=== PATIENT | male | born 1935 | race Caucasian/White ===

== ENCOUNTER 2016-11-23 17:07 | Emergency (ER) | payer OTHER ==
[~2016-11-23] VITALS: Ht 162.6 cm; Wt 120.2 kg
[~2016-11-23 17:07] MED LIST: ASPI81CH59 PO; ATO40T PO; BUPR100T71 PO; FLUT100M7 IN; FUR40T PO; LOS50T PO; POTA10TA75 PO; SERT-135 PO
[2016-11-23 18:50] LABS: Albumin 3.2 g/dL (3.4-5.0); Anion Gap 12 (5-15); Aspartate Aminotransferase 9 U/L (15-37); BUN/Creatinine Ratio 9.5; Blood Urea Nitrogen 16 mg/dL (7-18); Calcium 8.1 mg/dL (8.5-10.1); Carbon Dioxide 25 mmol/L (21-32); Chloride 108 mmol/L (98-107); GFR African American 51 mL/min; GFR Non-African American 42 mL/min; Glucose 110 mg/dL (74-106); Potassium 3.5 mmol/L (3.5-5.1); Sodium 145 mmol/L (136-145)
[2016-11-23 18:55] LABS: Alkaline Phosphatase 104 U/L (45-117); Bilirubin, Total 0.7 mg/dL (0.2-1.0); Total Protein 6.8 g/dL (6.4-8.2)
[2016-11-23 19:05] LABS: Basophils # (auto) 0 uL; Basophils % (auto) 0.3 % (0.0-2.0); CONDITION Y; Eosinophils # (auto) 0.3 uL; Eosinophils % (auto) 3.1 % (0.0-7.0); Hematocrit 39.8 % (41.0-53.0); Hemoglobin 13.2 g/dL (13.5-17.5); Lymphocytes # (auto) 2.9 uL; Lymphocytes % (auto) 28.5 % (10.0-50.0); Mean Corpuscular Hemoglobin 30.6 pg (28.0-32.0); Mean Corpuscular Hgb Conc. 33.3 g/dL (32.0-36.0); Mean Platelet Volume 10.8 fL (7.4-10.4); Monocytes # (auto) 0.9 uL; Monocytes % (auto) 9.4 % (0.0-12.0); Neutrophils # (auto) 5.9 uL; Neutrophils % (auto) 58.7 % (37.0-80.0); Platelet Count (auto) 217 10^3/uL (140-450); Red Cell Distribution Width 15.3 % (11.6-16.0); White Blood Cell 10.1 10^3/uL (4.4-10.8)
[2016-11-23 20:27] LABS: INR 1.12 (0.9-1.15); Partial Thromboplastin Time 25.5 sec (22.64-33.71); Prothrombin Time 12.2 sec (9.37-12.3)
[2016-11-23 20:59] LABS: Urine Bilirubin Negative (Negative); Urine Blood Negative /uL (Negative); Urine Color Yellow (Yellow); Urine Glucose Normal (Normal); Urine Ketone Negative (Negative); Urine Mucus FEW (None Seen); Urine Nitrite Negative (Negative); Urine RBC <1 /hpf (0 - 3); Urine Urobilinogen Normal (Negative); Urine pH 5.5 (5.0-8.0)
[2016-11-23] MEDS ORDERED: FUROSEMIDE 20 MG/2 ML VIAL IV ONE (22:15)
[2016-11-23] MEDS ORDERED: cefTRIAXone 1GM/50ML D5W 50 ML IV ONE (22:15)
[2016-11-23] MEDS ORDERED: IPRATROPIUM BROM 0.5 MG/2.5ML INH SOL NEB ONE (22:45)
[2016-11-23] MEDS ORDERED: ALBUTEROL SULF 2.5 MG/0.5ML(0.5%) NEB SOLN NEB ONE (22:45)
[2016-11-23 23:17] LABS: B-Type Natriuretic Peptide 860.93 pg/mL (0-100)
[2016-11-23 23:24] LABS: Temperature: 23.3 C (20.0-25.0)
[2016-11-24 05:30] VITALS: BP 150/94
== END 2016-11-24 05:54 | disposition home or self-care (01) ==
LOC: ER 17:07 → EDBD 17:07 → ER 11-24 05:54
DX: I11.0 Hypertensive heart disease with heart failure (principal); I50.9 Heart failure, unspecified; L03.116 Cellulitis of left lower limb; L03.115 Cellulitis of right lower limb; R60.9 Edema, unspecified; J44.9 Chronic obstructive pulmonary disease, unspecified; E78.5 Hyperlipidemia, unspecified; M19.90 Unspecified osteoarthritis, unspecified site; Z79.82 Long term (current) use of aspirin; Z79.899 Other long term (current) drug therapy
CPT/HCPCS: 36415; 51702; 71020; 80053; 81001; 83880; 84484; 85025; 85379; 85610; 85730; 93005; 93970; 94640; 96365; 96375; 99285; J0696; J1940

== ENCOUNTER 2019-08-27 08:14 | Inpatient (IN) | payer OTHER, SELFPAY ==
[~2019-08-27] VITALS: Ht 162.6 cm; Wt 113.9 kg
[~2019-08-27 08:14] MED LIST changes: -SERT-135 PO; +SERT100T PO
[2019-08-27] MEDS ORDERED: AZITHROMYCIN 500MG/ 250ML 250 ML IV ONE (08:45)
[2019-08-27] MEDS ORDERED: ASPirin 81 mg TAB PO ONE (08:45)
[2019-08-27] MEDS ORDERED: cefTRIAXone 1GM/50ML D5W 50 ML IV ONE (08:45)
[2019-08-27 09:35] LABS: Basophils # (auto) 0.1 10 ^3/uL (0-0.2); Basophils % (auto) 0.8 % (0.0-2.0); Eosinophils # (auto) 0.2 10 ^3/uL (0-0.8); Hematocrit 46.2 % (41.0-53.0); Lymphocytes # (auto) 2.2 10 ^3/uL (0.4-5.4); Lymphocytes % (auto) 18.3 % (10.0-50.0); Mean Corpuscular Hemoglobin 31.9 pg (28.0-32.0); Mean Corpuscular Hgb Conc. 32.5 g/dL (32.0-36.0); Mean Corpuscular Volume 98.3 fL (80.0-100.0); Monocytes # (auto) 0.9 10 ^3/uL (0-1.3); Monocytes % (auto) 7.6 % (0.0-12.0); Neutrophils # (auto) 8.4 10 ^3/uL (1.6-8.6); Neutrophils % (auto) 71.3 % (37.0-80.0); Platelet Count (auto) 206 10^3/uL (140-450); Red Cell Distribution Width 13.9 % (11.8-14.3); White Blood Cell 11.8 10^3/uL (4.4-10.8)
[2019-08-27 09:52] LABS: Albumin 3.7 g/dL (3.4-5.0); Anion Gap 10 (5-15); Blood Urea Nitrogen 32 mg/dL (7-18); Calcium 8.9 mg/dL (8.5-10.1); Carbon Dioxide 21 mmol/L (21-32); Chloride 106 mmol/L (98-107); Glucose 120 mg/dL (74-106); Potassium 4.7 mmol/L (3.5-5.1); Sodium 137 mmol/L (136-145)
[2019-08-27 09:56] LABS: Alanine Aminotransferase 22 U/L (16-61); Alkaline Phosphatase 89 U/L (45-117); Aspartate Aminotransferase 29 U/L (15-37); BUN/Creatinine Ratio 16.7; Bilirubin, Total 0.8 mg/dL (0.2-1.0); GFR African American 43 mL/min; GFR Non-African American 36 mL/min; Lactate Dehydrogenase 363 U/L (87-241); Total Protein 7.7 g/dL (6.4-8.2)
[2019-08-27 10:14] LABS: INR 1.51 (0.9-1.15); Partial Thromboplastin Time 32.1 sec (23.64-32.05)
[2019-08-27] MEDS ORDERED: MORPHINE SULF INJ 2 MG/ML SYRINGE 1ML IV PRN (11:30)
[2019-08-27] MEDS ORDERED: ALBUTEROL SULF HFA 90MCG INH 200DOSE IN PRN (11:30)
[2019-08-27] MEDS ORDERED: NITROGLYCERIN 0.4 MG SL TAB SL PRN (11:30)
[2019-08-27] MEDS ORDERED: ENOXAPARIN SOD 40 MG/0.4 ML SYRINGE SC ONE (12:00)
[2019-08-27] MEDS ORDERED: ASCORBIC ACID 1,000 MG TAB PO ONE (12:00)
[2019-08-27] MEDS ORDERED: CHOLECALCIFEROL (VITD3) 1,000UNIT=25mCg TAB PO ONE (12:00)
[2019-08-27] MEDS ORDERED: ZINC SULFATE 220mg CAP or TAB PO ONE (12:00)
--- NOTE | 2019-08-27 12:45 | NUR ---
Telemetry admit from [facility] admitted to Telemetry unit after SBAR received. Patient oriented to Zenobia galeano RN, isolation unit, room, bed, and unit policies regarding patient care and visiting hours. Patient now on continuous telemetry monitoring, tele box #4 and telemetry reading on arrival to unit is sinus tachycardia. Patient placed on bedside oxygen, weighed by bedscale and encouraged to call if they need something. All questions and concerns addressed, patient verbalized understanding.
--- NOTE | 2019-08-27 13:30 | NUR ---
IV removal IV site discovered to be infiltrated after arrival from ER. IV DC'd with clean sterile technique, catheter fully intact. Pressure dressing applied to site. Patient tolerated well.
[2019-08-27 14:02] VITALS: BP 135/81
--- NOTE | 2019-08-27 14:10 | NUR ---
Respiratory note: ASSESSED PT FOR PRN PT WAS AWAKE AND ALERT NO RESP DISTRESS NOTED. HR 70, RR 18, SPO2 98% ON 2L N/C. BS ARE CLEAR. NO INDICATION FOR TX AT THIS TIME. PT KNOWS TO HAVE RT PAGED IF TX IS NEEDED.
[2019-08-27 14:56] VITALS: BP 115/42
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
--- NOTE | 2019-08-27 15:52 | NUR ---
IV insertion IV access obtained, via clean sterile technique by inserting a 22 gauge catheter at LFA after 1 attempT. IV secured properly. No trauma to site. Patient tolerated well.
[2019-08-27] MEDS ORDERED: ALBUTEROL SULF 2.5 MG/0.5ML(0.5%) NEB SOLN NEB PRN (16:45)
[2019-08-27 17:02] VITALS: BP 139/64
--- NOTE | 2019-08-27 18:07 | NUR ---
TRANSFER OF CARE REPORT GIVEN TO YARELY FONTENOT.
--- NOTE | 2019-08-27 18:10 | NUR ---
TRANSFER RECEIVED PATIENT FROM [facility] TO ROOM 251-A. ALERT AND ORIENTED X4. DENIES PAIN, NO SOB, NO CHEST PAIN. PATIENT IS TEARY AND EMOTIONAL ABOUT FAMILY DISCOURSE ON INITIAL ENCOUNTER. PLAN OF CARE DISCUSSED. BED IN LOW AND LOCKED POSITION, CALL LIGHT AND PHONE WITHIN REACH. ADVISED TO CALL FOR SERVICE WORKER. WILL CONTINUE TO MONITOR Q1HR AND PRN.
--- NOTE | 2019-08-27 19:20 | NUR ---
Received report from the Day Shift CORIE Greenwood. Pt. in bed resting. Initial assessment done.
--- NOTE | 2019-08-27 19:38 | NUR ---
Pt. SR @ the monitor Tele # 4 @ the 60's.
--- NOTE | 2019-08-27 20:00 | NUR ---
Complete assessment done. Pt. SR @ 60's @ the monitor Tele # 4. Denies chest pain or chest discomfort.
[2019-08-27 22:00] VITALS: BP 123/56
--- NOTE | 2019-08-27 22:00 | NUR ---
Pt. due med. of Plaquenil or Hydroxychloroquine Sulfate is not given to the pt. since pt. is Negative (-) for Covid. Pt. [facility] @ 1815 PM today.
--- NOTE | 2019-08-27 23:01 | NUR ---
Respiratory note: ASSESSED PT FOR PRN MED NEB TX. PT IS CURRENTLY O N2 L/M NC: HR 67, RR 18, SPO2 98%. PT SHOWS NO S/S OF SOB OR RESPIRATORY DISTRESS. MED NEB TX NOT INDICATED AT THIS TIME. WILL CONTINUE TO MONITOR.
--- NOTE | 2019-08-28 | NUR ---
Pt. is sleeping undisturbed @ this time. Keep pt. safe and tile finisher bed. Pt. still SR @ the monitor. No s/s of pain or discomfort. No verbalization of pain.
--- NOTE | 2019-08-28 02:00 | NUR ---
Pt. is asleep. Maintained a safe and quiet environment.
--- NOTE | 2019-08-28 04:00 | NUR ---
Pt. sleeping and resting quietly undisturbed.
[2019-08-28 05:00] VITALS: BP 118/59
--- NOTE | 2019-08-28 06:00 | NUR ---
Pt. provided bedside nsg. care. Pt. keep safe and case management coordinator bed.
--- NOTE | 2019-08-28 07:06 | NUR ---
Respiratory note: HR 68, RR 16, SPO2 97% ON RA, BS CLEAR. PRN MED NEB TX NOT INDICATED AT THIS TIME. NO SIGNS OR SYMPTOMS OF RESPIRATORY DISTRESS NOTED AT THIS TIME
--- NOTE | 2019-08-28 07:30 | NUR ---
Opening Shift Note Assumed care of patient, awake, alert and oriented x4. No S/S of distress/SOB, denies pain at this time. Bed is in lowest and locked position with side rails up X2. Plan of care discussed, and advised to call for assist PRN, will continue to monitor for changes Q1hr and PRN.
[2019-08-28 09:04] VITALS: BP 135/68
[2019-08-28] MEDS: cefTRIAXone 1GM/50ML D5W 50 ML IV SCH (09:04)
[2019-08-28] MEDS ORDERED: ASCORBIC ACID 1,000 MG TAB PO SCH (10:00)
[2019-08-28] MEDS ORDERED: ZINC SULFATE 220mg CAP or TAB PO SCH (10:00)
[2019-08-28] MEDS ORDERED: AZITHROMYCIN 500MG/ 250ML 250 ML IV SCH (10:00)
[2019-08-28] MEDS ORDERED: CHOLECALCIFEROL (VITD3) 1,000UNIT=25mCg TAB PO SCH (10:00)
[2019-08-28] MEDS: ENOXAPARIN SOD 40 MG/0.4 ML SYRINGE SC SCH (10:35)
[2019-08-28 12:52] VITALS: BP 131/75
[2019-08-28] MEDS ORDERED: FLUT250M2 IN (15:29)
--- NOTE | 2019-08-28 16:00 | NUR ---
INFORMED DR. TRAMMELL OF PATIENT'S COMPLAIN OF PAIN ON RIGHT LEG. NEW ORDER FOR RIGHT VENOUS LTD TO R/O DVT PLACED
[2019-08-28] MEDS ORDERED: OPTISON 3ml Vial for INJ IV ONE (16:10)
--- NOTE | 2019-08-28 17:00 | NUR ---
PATIENT UPSET AND ADAMANT THAT HE NO LONGER WANTS TO BE IN THE HOSPITAL AND DOES NOT CARE WHERE HE GOES. PATIENT INSISTS AGAINST EDUCATION ABOUT CARE PLAN. PATIENT REFUSED LAB DRAW AT THE TIME. TOOK OFF TELE BOX AND GOT DRESSED, AND ACTUALLY GOT ON A WHEELCHAIR TO LEAVE. A CALL MADE TO CAREGIVER TO INFORM OF PARENTS DECISION. CAREGIVER IS NOT WILLING TO PICK PATIENT UP AND SPOKE TO HIM TO FOLLOW TREATMENT PLAN. CHARGE NURSE SPOKE TO PATIENT ON SEVERAL OCCASIONS BUT PATIENT CONTINUES TO SOB AND SAYING "I DOES NOT WANT TO BE IN THE HOSPITAL, I DON'T CARE IF I END UP IN THE STREET" PATIENT IS NOT PHYSICALLY ABLE TO LEAVE ON HIS OWN DUE TO LIMITED MOBILITY, SO HE WAS ENCOURAGED TO STAY UNTIL A REASONABLE PLACE OF DISCHARGE IS REACHED.
--- NOTE | 2019-08-28 17:30 | NUR ---
PATIENT UPSET: IN TO SPEAK WITH PATIENT, HE IS UPSET AND STATES HE DOES NOT WANT TO STAY HERE ANYMORE, AND WE CANT MAKE HIM STAY HERE. WHILE I WAS IN THE ROOM PATIENTS BUSINESS RULES ANALYST SHANUA CALLED HIM, PATIENT WAS BEGGING HER TO PLEASE COME AND PICK HIM UP, STATING HE DOES NOT WANT TO STAY HERE. PATIENT IS CRYING THROUGHOUT THE CONVERSATION WITH HIS BUSINESS RULES ANALYST ASKING THAT SHE COME PICK HIM UP EVEN IF SHE JUST LETS HIM GO BACK FOR A FEW DAYS UNTIL HE CAN FIGURE SOMETHING ELSE OUT. PATIENT THEN STATED "WHATEVER IM TO YOU THEN", PATIENT HUNG UP THE PHONE AND YANKED OFF HIS TELE MONITOR. I ASKED HIM IF SOMETHING HAD HAPPENED WITH HIS DAUGHTER OR CAREGIVER THAT WOULD MAKE IT THAT HE COULD NOT RETURN THERE, PATIENT STATED "WE JUST DON'T GET ALONG ABOUT ANYTHING AND SHE DOESN'T WANT TO TAKE CARE OF ME". LAB AND DOCUMENT EXAMINER AT BEDSIDE, PATIENT REFUSING ALL PROCEDURES AT THIS TIME. PATIENT STATED TAKE THESE OUT OF ME, REFERRING TO HIS IV, PATIENT STATES I DON'T CARE IF I HAVE TO CRAWL OUT OF HERE AND LIVE ON SKID ROW YOU CANT MAKE ME STAY HERE. I INFORMED YARELY LIU PRIMARY RN THAT PATIENT IS STILL REFUSING TO STAY, AND THAT CAREGIVER WILL NOT PICK HIM UP. YARELY STATES SHE WILL CALL BACK THE CAREGIVER AND INFORM HER THAT WE CAN NOT FORCE HIM TO STAY HERE AGAINST HIS WILL. PRIMARY RN YARELY TO REMOVE IV'S AT THIS TIME.
--- NOTE | 2019-08-28 18:45 | NUR ---
CASE MANAGEMENT: PAGED STRATEGIC MANAGER CASE MANAGEMENT, DO ADVISE OF THE SITUATION.
--- NOTE | 2019-08-28 18:50 | NUR ---
AFTER MULTIPLE THERAPEUTIC ATTEMPT TO INFORM THE PATIENT IT WAS UNSAFE FOR HIM TO LEAVE IN THE CONDITION HE WAS. PATIENT ACCEPTED TO STAY. CAREGIVER, SHAUNA AWARE, AND ENCOURAGED HIM TO STAY. PATIENT IS STILL TEARY, WILL CONTINUE TO MONITOR Q1 AND PRN.
--- NOTE | 2019-08-28 19:04 | NUR ---
Respiratory note: NO PRN TX GIVEN, NOT INDICATED AT THIS TIME, NO SOB NOTED. PT IS ON RA, SATS 95%, HR 78, RR 20. PT IS UPSET, CRYING. STATES "MY BREATHING IS FINE, I JUST HAVE A BROKEN HEART". PT NOTIFIED TO CALL IF HE BECOMES SOB AND NEEDS A TX. YOUTH CARE SPECIALIST AT BEDSIDE WITH PT.
--- NOTE | 2019-08-28 19:06 | NUR ---
CASE MGMT: NOÉ CALLED RE: PT'S PRESENT STATUS, PER NOÉ SHE WAS ABLE TO TALK TO THE PT, PT AGREED TO STAY FOR TONIGHT. PER NOÉ, SHE WILL CALL HER SWEATBAND SEPARATOR RE: PLACEMENT AND WILL CALL BACK.
--- NOTE | 2019-08-28 19:15 | NUR ---
CASE MGMT: [facility] CASE MGMT CALLED AND INQUIRED RE: HX OF PT. SHE STATED WILL REVIEW PT'S CASE AND WILL FF-UP TOMORROW FOR POSSIBLE PLACEMENT.
--- NOTE | 2019-08-28 19:30 | NUR ---
Opening Shift Note Assumed care of patient, awake and alert. No S/S of distress/SOB or pain. Instructed on POC and to call for assist PRN, will continue to monitor for changes Q1hr and PRN. Bed locked in lowest position and bed rails up x2. Call light within reach.
[2019-08-28 22:00] VITALS: BP 131/60
[2019-08-28] MEDS: METOPROLOL TARTRATE 25 MG TAB PO SCH (23:53)
--- NOTE | 2019-08-29 05:00 | NUR ---
IV insertion IV access obtained, via clean sterile technique by inserting a 22 gauge catheter. IV secured properly. No trauma to site. Patient tolerated well.
--- NOTE | 2019-08-29 05:01 | NUR ---
Attempted to place second IV for stress test later today. Attempted 6 times by multiple nurses. Patient tolerated well and stated that "he can barely feel any pokes and it doesnt hurt".
[2019-08-29 05:29] VITALS: BP 120/54
[2019-08-29 05:42] LABS: Basophils # (auto) 0.1 10 ^3/uL (0-0.2); Basophils % (auto) 0.7 % (0.0-2.0); Eosinophils # (auto) 0.3 10 ^3/uL (0-0.8); Eosinophils % (auto) 3.4 % (0.0-7.0); Hematocrit 42.6 % (41.0-53.0); Hemoglobin 14.2 g/dL (13.5-17.5); Lymphocytes # (auto) 2.5 10 ^3/uL (0.4-5.4); Lymphocytes % (auto) 26.4 % (10.0-50.0); Mean Corpuscular Hemoglobin 32.6 pg (28.0-32.0); Mean Corpuscular Hgb Conc. 33.3 g/dL (32.0-36.0); Mean Corpuscular Volume 97.9 fL (80.0-100.0); Monocytes # (auto) 0.9 10 ^3/uL (0-1.3); Monocytes % (auto) 9.7 % (0.0-12.0); Neutrophils # (auto) 5.6 10 ^3/uL (1.6-8.6); Neutrophils % (auto) 59.8 % (37.0-80.0); Nucleated Red Blood Cells % 0.1 %; Platelet Count (auto) 178 10^3/uL (140-450); Red Blood Cells 4.35 10^6/uL (4.5-5.90); Red Cell Distribution Width 13.8 % (11.8-14.3); White Blood Cell 9.4 10^3/uL (4.4-10.8)
[2019-08-29 06:03] LABS: Anion Gap 7 (5-15); Blood Urea Nitrogen 32 mg/dL (7-18); Calcium 8.6 mg/dL (8.5-10.1); Carbon Dioxide 25 mmol/L (21-32); Chloride 106 mmol/L (98-107); Glucose 128 mg/dL (74-106); Potassium 4.2 mmol/L (3.5-5.1); Sodium 138 mmol/L (136-145)
[2019-08-29 06:08] LABS: BUN/Creatinine Ratio 18.8; GFR African American 50 mL/min; GFR Non-African American 41 mL/min
[2019-08-29] MEDS ORDERED: ADENOSINE 97 MG in GIVE UN-DILUTED 0 ML IV STA (08:14)
[2019-08-29 08:43] VITALS: BP 142/77
[2019-08-29 09:51] LABS: Urine Bacteria NONE SEEN /hpf (None Seen); Urine Blood Negative /uL (Negative); Urine Specific Gravity 1.019 (1.001-1.035); Urine WBC 1 /hpf (0 - 3)
--- NOTE | 2019-08-29 10:42 | NUR ---
Respiratory note: PT ASSESSED FOR PRN TX. HR 67, RR 18, POX 96% ON RA, BREATH BS ARE CLEAR/DIMINISHED. NO SOB OR DISTRESS NOTED AT THIS TIME. PT WAS NOTIFY TO HAVE RT PAGE FRO NEEDED TX.
[2019-08-29] MEDS: cefTRIAXone 1GM/50ML D5W 50 ML IV SCH (11:08)
[2019-08-29] MEDS: METOPROLOL TARTRATE 25 MG TAB PO SCH ×2 (11:11→21:57)
[2019-08-29] MEDS: ASPirin 81 mg TAB PO SCH (11:11)
[2019-08-29] MEDS: AZITHROMYCIN 250 MG TAB PO SCH (11:12)
[2019-08-29] MEDS: ENOXAPARIN SOD 40 MG/0.4 ML SYRINGE SC SCH (11:12)
--- NOTE | 2019-08-29 12:44 | NUR ---
assessment re: ss consult Patient is a 83 year old male who is alert and oriented. Prior to admission patient lived home with his POA Madelyn and functioned with assistance. Per patient they were staying with his daughter for the last 2 months, but they will be going back home on discharge. I informed patient of his ss consult that caregiver and family refuses to allow him to come home. Patient informed me that he refuses to return to his daughters house and wants to return home with Madelyn. I called Madelyn and she informed me that she told patient if he signs out AMA she would refuse to come get him. Patient is now staying for his medical treatment and Madelyn agrees to bring him home. Per Madelyn she needs to have patients hospital bed and personal items brought back home. I have informed RN of [facility] wishes for patient to be discharged in the morning after testing and his items delivered to home. Patient and Madelyn verbalized understanding and agreed to discharge plan home. Addendum: 08/29/19 at 1250 by Tori JOVEL Amended: Links added.
[2019-08-29 17:35] VITALS: BP 118/50
--- NOTE | 2019-08-29 19:20 | NUR ---
Opening Shift Note Assumed care of patient. Patient is awake and alert. No S/S of distress/SOB or pain. Instructed on POC and to call for assist PRN, will continue to monitor for changes Q1hr and PRN. Bed locked in lowest position and bed rails up x2. Call light within reach.
[2019-08-29 21:15] VITALS: BP 141/66
[2019-08-30] VITALS (8 sets, daily range): BP systolic 126–150; BP diastolic 66–73
[2019-08-30 06:16] LABS: Basophils # (auto) 0.1 10 ^3/uL (0-0.2); Basophils % (auto) 1.1 % (0.0-2.0); Eosinophils # (auto) 0.2 10 ^3/uL (0-0.8); Eosinophils % (auto) 2.9 % (0.0-7.0); Hematocrit 42.3 % (41.0-53.0); Hemoglobin 14.4 g/dL (13.5-17.5); Lymphocytes # (auto) 1.9 10 ^3/uL (0.4-5.4); Lymphocytes % (auto) 24.9 % (10.0-50.0); Mean Corpuscular Hemoglobin 32.5 pg (28.0-32.0); Mean Corpuscular Volume 95.8 fL (80.0-100.0); Monocytes # (auto) 0.7 10 ^3/uL (0-1.3); Monocytes % (auto) 9.3 % (0.0-12.0); Neutrophils # (auto) 4.8 10 ^3/uL (1.6-8.6); Neutrophils % (auto) 61.8 % (37.0-80.0); Nucleated Red Blood Cells % 0.1 %; Platelet Count (auto) 178 10^3/uL (140-450); Red Blood Cells 4.42 10^6/uL (4.5-5.90); Red Cell Distribution Width 13.5 % (11.8-14.3); White Blood Cell 7.7 10^3/uL (4.4-10.8)
[2019-08-30 06:39] LABS: Anion Gap 5 (5-15); BUN/Creatinine Ratio 15.6; Blood Urea Nitrogen 25 mg/dL (7-18); Calcium 8.4 mg/dL (8.5-10.1); Carbon Dioxide 26 mmol/L (21-32); Chloride 109 mmol/L (98-107); GFR African American 54 mL/min; GFR Non-African American 44 mL/min; Glucose 124 mg/dL (74-106); Potassium 4.2 mmol/L (3.5-5.1); Sodium 140 mmol/L (136-145)
--- NOTE | 2019-08-30 07:30 | NUR ---
Opening Shift Note Assumed care of patient, awake and alert. No S/S of distress/SOB or pain. Instructed on POC and to call for assist PRN, will continue to monitor for changes Q1hr and PRN.
[2019-08-30] MEDS: cefTRIAXone 1GM/50ML D5W 50 ML IV SCH (09:00)
--- NOTE | 2019-08-30 09:09 | NUR ---
Dr. Velasquez in to see patient as hospitalist.
[2019-08-30] MEDS: METOPROLOL TARTRATE 25 MG TAB PO SCH ×2 (09:28→22:00)
[2019-08-30] MEDS: ASPirin 81 mg TAB PO SCH (09:29)
[2019-08-30] MEDS: AZITHROMYCIN 250 MG TAB PO SCH (09:29)
[2019-08-30] MEDS: ENOXAPARIN SOD 40 MG/0.4 ML SYRINGE SC SCH (09:29)
--- NOTE | 2019-08-30 09:57 | NUR ---
re-assessment I received a call from patients daughter Alethea who was yelling and threatening me if I let patient go home with Madelyn. Per Alethea she wants patient with her. Patient informed me in front of Lizzette DOAN that he does not want Alethea making any decisions for him, he does not want Alethea given any information on him. Patient is alert and oriented. Alethea informed me she will not give patient any of his belongings. Alethea was yelling and cursing at me. I asked Alethea to lower her voice and to not use profanity. Alethea continued. I asked again for her to stop and she continued so I hung up the phone. Alethea called back and continued to yell and use profanity. I informed CORIE Gan of patients wishes to go home with Madelyn. I have left a message for Madelyn to return my call. Addendum: 08/30/19 at 1005 by Tori JOVEL Amended: Links added.
--- NOTE | 2019-08-30 11:50 | NUR ---
Spoke with patient's caregiver, Madelyn, re discharge. Madelyn states she can't take the patient home today as she needs to buy a bed and get a room ready. Dr. Velasquez aware. Tori, upper caser informed. Tori states she will order a hospital bed and a FWW for the patient. When they are delivered the patient can be discharged. Will continue to monitor.
--- NOTE | 2019-08-30 12:44 | NUR ---
I faxed order for hospital bed, walker and wheelchair to [place].
--- NOTE | 2019-08-30 13:31 | NUR ---
1330 08/30/19 I spoke with [employer] Audrey-she let me know that patient already has hospital bed through them. The wheelchair and walker will be delivered to patient's home by 5pm this evening. Patient discharging home today.
--- NOTE | 2019-08-30 13:44 | NUR ---
6996 08/30/19 I spoke with [employer] [employer] Audrey and requested that authorization be provided for patient's continued stay (per Dr. Velasquez patient to discharge home tomorrow)-per Audrey inpatient stay authorization is extended until 08/31/19 1000. I requested that Audrey have walker delivered to hospital instead of home-she will notify [facility]. I also requested that previously provided hospital bed be picked up and a different one delivered-Audrey will speak with [facility] regarding that and give me a call back.
--- NOTE | 2019-08-30 15:42 | NUR ---
ASSESSED PT FOR PRN BREATHING TX, PT ON RA WITH SPO2 98%, HR 58, RR 16 NO DISTRESS NOTED. WILL CONTINUE TO MONITOR PT.
--- NOTE | 2019-08-30 16:45 | NUR ---
Faxed luciana lift/home oxygen order to [facility].
--- NOTE | 2019-08-30 17:13 | NUR ---
Received call from Audrey at [facility] for home oxygen. She requested pulse ox check on room air. Pulse ox 96% on room air. Audrey states the patient does not qualify for home O2.
--- NOTE | 2019-08-30 19:35 | NUR ---
Opening Shift Note Assumed care of patient, awake and alert. No S/S of distress/SOB or pain. Instructed on POC and to call for assist PRN, will continue to monitor for changes Q1hr and PRN. Bed in low position and call light within reach. fall precautions in place. Patient informed to call for assistance
--- NOTE | 2019-08-30 20:30 | NUR ---
Respiratory note: ASSESSMENT FOR PRN LEW NEB TX, HR 63, SPO2 97% ON ROOM AIR, RR 18, BS DIMINISHED. PT PRESENTING NO RESPIRATORY DISTRESS AT THIS TIME. PT AWARE TO HAVE RT PAGED IF MED NEB TX IS NEEDED, WILL CONTINUE TO MONITOR.
--- NOTE | 2019-08-31 00:43 | NUR ---
patient is has active range of motion and is able to dangle on side of bed to use urinal.
--- NOTE | 2019-08-31 03:10 | NUR ---
PATIENT HEART RATE 60BPM DENIES SOB DISTRESS OR PAIN. PATIENT USING URINAL.. FALL PRECAUTIONS PLACED.
[2019-08-31 05:32] VITALS: BP 121/69
--- NOTE | 2019-08-31 06:55 | NUR ---
PATIENT ROUNDS PATIENT IS IN BED WATCHING TV DENIES SOB DISTRESS OR PAIN. FALL PRECAUTIONS IN PLACE
--- NOTE | 2019-08-31 07:21 | NUR ---
report given to vivien gonzalez
--- NOTE | 2019-08-31 07:30 | NUR ---
Opening Shift Note Assumed care of patient, awake and alert. No S/S of distress/SOB or pain, patient is anxious to be discharged home today. Instructed on POC and to call for assist PRN, will continue to monitor for changes Q1hr and PRN. Bed in low and locked position, rails up x2, no-slip socks on, patients own walker at bedside.
[2019-08-31 09:00] VITALS: BP 116/73
[2019-08-31] MEDS: cefTRIAXone 1GM/50ML D5W 50 ML IV SCH (09:00)
[2019-08-31] MEDS: AZITHROMYCIN 250 MG TAB PO SCH (09:39)
[2019-08-31] MEDS: ASPirin 81 mg TAB PO SCH (09:39)
[2019-08-31] MEDS: ENOXAPARIN SOD 40 MG/0.4 ML SYRINGE SC SCH (09:40)
[2019-08-31] MEDS: METOPROLOL TARTRATE 25 MG TAB PO SCH (09:40)
--- NOTE | 2019-08-31 11:27 | NUR ---
SPOKE TO PATIENT CAREGIVER-SHAUNA PASSWORD VERIFIED, SHAUNA STATED THAT SHE DOES NOT HAVE A BED FOR THIS PATIENT, SHE HERSELF HAS BEEN SLEEPING ON A COUCH AND SHE WILL NOT PICK HIM UP FOR DISCHARGE WITHOUT VERIFICATION THAT THE BED WILL BE DELIVERED TO THEIR NEW LOCATION.
--- NOTE | 2019-08-31 11:30 | NUR ---
DR METZGER AT BEDSIDE
[2019-08-31] MEDS ORDERED: LEVO25TA49 PO (12:44)
[2019-08-31 13:00] VITALS: BP 99/64
--- NOTE | 2019-08-31 13:02 | NUR ---
Respiratory note: ASSESSMENT FOR PRN LEW NEB TX, HR 56, SPO2 97% ON ROOM AIR, RR 16, BS DIMINISHED. PT PRESENTING NO RESPIRATORY DISTRESS AT THIS TIME. PT AWARE TO HAVE RT PAGED IF MED NEB TX IS NEEDED, WILL CONTINUE TO MONITOR.
--- NOTE | 2019-08-31 13:22 | NUR ---
REQUESTING PAIN MEDICATION PRESCRIPTION FOR DISCHARGE PATIENTS CAREGIVER STATED SHE WILL BE HERE IN 30 MINUTES TO AN HOUR TO LASER CUTTER PATIENT HOWEVER PATIENT AND CAREGIVER ASKING THAT HIS PAIN MEDICATION BE WRITTEN TO BE FILLED, [place] . PAGE TO DR METZGER REGARDING REQUEST.
--- NOTE | 2019-08-31 13:57 | NUR ---
DR METZGER CALL BACK NO INCREASE IN PAIN MEDS. MAY DISCHARGE PATIENT.
--- NOTE | 2019-08-31 14:24 | NUR ---
DISCHARGE Discharge instructions given as ordered. Encourage to follow up with PMD as instructed. All questions and concerns addressed. Patient verbalized understanding. Medication reconciliation form completed and copy given to patient. Home medications held in Pharmacy returned to patient. IV removed with catheter intact, pressure dressing applied. Telemetry unit returned to ICU. Patient taken to vehicle via wheelchair with all personal belongings, accompanied by staff. No distress noted at time of departure.
== END 2019-08-31 14:23 | disposition home or self-care (01) | DRG 311 ==
LOC: EDBD 08:14 → ER 08:14 → TELE 08:15 → TELE-EAST 12:58 → TELE-CENTR 08-28 21:30
PROVIDERS: ADMIT Nurse Practitioner Acute Care; ATTEND Internal Medicine
DX: I20.9 Angina pectoris, unspecified (principal); J18.9 Pneumonia, unspecified organism; N17.0 Acute kidney failure with tubular necrosis; Z68.41 Body mass index [BMI] 40.0-44.9, adult; D68.9 Coagulation defect, unspecified; I13.0 Hypertensive heart and chronic kidney disease with heart failure and stage 1 through stage 4 chronic kidney disease, or unspecified chronic kidney disease; J44.0 Chronic obstructive pulmonary disease with (acute) lower respiratory infection; N18.3 Chronic kidney disease, stage 3 (moderate); E66.01 Morbid (severe) obesity due to excess calories; E78.5 Hyperlipidemia, unspecified; F32.9 Major depressive disorder, single episode, unspecified; I50.9 Heart failure, unspecified; I99.8 Other disorder of circulatory system; Z53.20 Procedure and treatment not carried out because of patient's decision for unspecified reasons; Z79.51 Long term (current) use of inhaled steroids; Z79.82 Long term (current) use of aspirin; Z82.49 Family history of ischemic heart disease and other diseases of the circulatory system; Z95.2 Presence of prosthetic heart valve; Z20.828 Contact with and (suspected) exposure to other viral communicable diseases
CPT/HCPCS: 36415; 71045; 78452; 80048; 80053; 81001; 82728; 83036; 83605; 83615; 83880; 84443; 84484; 85025; 85379; 85610; 85730; 86141; 87040; 87070; 87804; 87880; 93005; 93017; 93306; 93971; 99291; G0378; J0153; J0696; Q9956

== ENCOUNTER → 2021-03-30 | Emergency (ER) | payer OTHER ==
[~2021-03-30] VITALS: Ht 177.8 cm; Wt 117.9 kg
[~2021-03-30] MED LIST changes: +DexAMETHasone SOD PHOS 10MG/1ML VIAL INJ IV ONE; -FLUT100M7 IN; +FLUT250M2 IN; +LEVO25TA49 PO; +POTA-264 PO; -POTA10TA75 PO
[2021-03-30 01:48] LABS: Basophils # (auto) 0.1 10 ^3/uL (0-0.2); Basophils % (auto) 0.9 % (0.0-2.0); Eosinophils # (auto) 0.3 10 ^3/uL (0-0.8); Eosinophils % (auto) 2.9 % (0.0-7.0); Hematocrit 40.1 % (41.0-53.0); Hemoglobin 13.6 g/dL (13.5-17.5); Lymphocytes # (auto) 1.4 10 ^3/uL (0.4-5.4); Lymphocytes % (auto) 15.2 % (10.0-50.0); Mean Corpuscular Hemoglobin 31.6 pg (28.0-32.0); Mean Corpuscular Hgb Conc. 33.9 g/dL (32.0-36.0); Mean Corpuscular Volume 93.2 fL (80.0-100.0); Monocytes # (auto) 1.3 10 ^3/uL (0-1.3); Monocytes % (auto) 13.9 % (0.0-12.0); Neutrophils # (auto) 6.2 10 ^3/uL (1.6-8.6); Neutrophils % (auto) 67.1 % (37.0-80.0); Nucleated Red Blood Cells % 0.1 %; Red Cell Distribution Width 13.7 % (11.8-14.3); White Blood Cell 9.3 10^3/uL (4.4-10.8)
[2021-03-30 02:07] LABS: BUN/Creatinine Ratio 14.3; Calcium 8.2 mg/dL (8.5-10.1); Potassium 4.7 mmol/L (3.5-5.1)
[2021-03-30 11:00] VITALS: BP 171/81
== END | disposition home or self-care (01) ==
LOC: EDUNIT# 03-29 23:52 → EDBD 00:02 → ER 00:02
DX: U07.1 COVID-19 (principal); R09.02 Hypoxemia; I13.0 Hypertensive heart and chronic kidney disease with heart failure and stage 1 through stage 4 chronic kidney disease, or unspecified chronic kidney disease; N18.9 Chronic kidney disease, unspecified; I50.9 Heart failure, unspecified
CPT/HCPCS: 36415; 71045; 80048; 83605; 85025; 87426; 93005; 96374; 99285; J1100

== ENCOUNTER 2021-04-04 23:49 | Emergency (ER) | payer OTHER ==
[~2021-04-04] VITALS: Ht 170.2 cm; Wt 65.8 kg
[~2021-04-04 23:49] MED LIST changes: -DexAMETHasone SOD PHOS 10MG/1ML VIAL INJ IV ONE
[2021-04-05] MEDS ORDERED: ALBUTEROL SULF 2.5 MG/0.5ML(0.5%) NEB SOLN NEB ONE ×2 (01:45→05:45)
[2021-04-05 02:09] LABS: Basophils # (auto) 0.1 10 ^3/uL (0-0.2); Basophils % (auto) 0.4 % (0.0-2.0); Eosinophils # (auto) 0 10 ^3/uL (0-0.8); Eosinophils % (auto) 0.1 % (0.0-7.0); Hematocrit 42.9 % (41.0-53.0); Hemoglobin 14.4 g/dL (13.5-17.5); Lymphocytes # (auto) 0.9 10 ^3/uL (0.4-5.4); Lymphocytes % (auto) 6.9 % (10.0-50.0); Mean Corpuscular Hemoglobin 31.4 pg (28.0-32.0); Mean Corpuscular Hgb Conc. 33.5 g/dL (32.0-36.0); Mean Corpuscular Volume 93.5 fL (80.0-100.0); Monocytes # (auto) 0.7 10 ^3/uL (0-1.3); Monocytes % (auto) 4.9 % (0.0-12.0); Neutrophils # (auto) 11.8 10 ^3/uL (1.6-8.6); Neutrophils % (auto) 87.7 % (37.0-80.0); Red Blood Cells 4.59 10^6/uL (4.5-5.90); White Blood Cell 13.5 10^3/uL (4.4-10.8)
[2021-04-05 02:35] LABS: Albumin 3.1 g/dL (3.4-5.0)
[2021-04-05 02:39] LABS: Potassium 4.4 mmol/L (3.5-5.1)
[2021-04-05 02:40] LABS: Bilirubin, Total 0.6 mg/dL (0.2-1.0); Total Protein 6.9 g/dL (6.4-8.2)
[2021-04-05] MEDS ORDERED: methylPREDNISolone SOD SUCC 125 MG/2 ML VL IV ONE (05:45)
[2021-04-05] MEDS ORDERED: IPRATROPIUM BROM 0.5 MG/2.5ML INH SOL NEB ONE (05:45)
[2021-04-05 09:22] VITALS: BP 160/88
== END 2021-04-05 11:22 | disposition home or self-care (01) ==
LOC: ER 23:49 → EDBD 23:49 → ER 04-05 11:22
DX: U07.1 COVID-19 (principal); I13.0 Hypertensive heart and chronic kidney disease with heart failure and stage 1 through stage 4 chronic kidney disease, or unspecified chronic kidney disease; N18.9 Chronic kidney disease, unspecified; I50.89 Other heart failure; J44.9 Chronic obstructive pulmonary disease, unspecified; E78.5 Hyperlipidemia, unspecified
CPT/HCPCS: 36415; 71045; 73552; 73560; 73590; 80053; 82728; 83880; 84484; 85025; 87426; 93005; 94640; 96374; 99285; J2930; J7644

== ENCOUNTER 2022-06-20 13:06 | Emergency (ER) | payer OTHER ==
[~2022-06-20] VITALS: Ht 162.6 cm; Wt 104.5 kg
[2022-06-20 13:06] VITALS: BP 166/96
[2022-06-20] MEDS ORDERED: diphenhdrAMINE HCL 50 MG/1 ML VL IV ONE (13:30)
[2022-06-20] MEDS ORDERED: SODIUM CHLORIDE 0.9% 500 ML IVB ONE (13:30)
[2022-06-20 13:55] LABS: Basophils # (auto) 0.1 10 ^3/uL (0-0.2); Basophils % (auto) 0.9 % (0.0-2.0); Eosinophils # (auto) 0.6 10 ^3/uL (0-0.8); Eosinophils % (auto) 5.7 % (0.0-7.0); Hematocrit 46.9 % (41.0-53.0); Hemoglobin 15.9 g/dL (13.5-17.5); Lymphocytes # (auto) 2.2 10 ^3/uL (0.4-5.4); Lymphocytes % (auto) 21.6 % (10.0-50.0); Mean Corpuscular Hemoglobin 31.7 pg (28.0-32.0); Mean Corpuscular Hgb Conc. 33.9 g/dL (32.0-36.0); Mean Corpuscular Volume 93.5 fL (80.0-100.0); Monocytes # (auto) 0.6 10 ^3/uL (0-1.3); Monocytes % (auto) 5.8 % (0.0-12.0); Neutrophils # (auto) 6.8 10 ^3/uL (1.6-8.6); Nucleated Red Blood Cells % 0.4 %; Red Blood Cells 5.02 10^6/uL (4.5-5.90); Red Cell Distribution Width 13.8 % (11.8-14.3); White Blood Cell 10.2 10^3/uL (4.4-10.8)
[2022-06-20 14:14] LABS: Albumin 3.6 g/dL (3.4-5.0); Calcium 8.9 mg/dL (8.5-10.1); Magnesium 2.3 mg/dL (1.6-2.6); Potassium 4.4 mmol/L (3.5-5.1)
[2022-06-20 14:17] LABS: Bilirubin, Total 0.9 mg/dL (0.2-1.0); Total Protein 7.4 g/dL (6.4-8.2)
[2022-06-20] MEDS ORDERED: DIPH25CA66 PO (15:56)
[2022-06-20] MEDS ORDERED: METH4PAK PO ×3 (15:56→15:57)
== END 2022-06-20 22:00 | disposition home or self-care (01) ==
LOC: ER 13:06 → EDBD 13:06 → ER 22:00
DX: T78.40XA Allergy, unspecified, initial encounter (principal); I13.0 Hypertensive heart and chronic kidney disease with heart failure and stage 1 through stage 4 chronic kidney disease, or unspecified chronic kidney disease; N18.9 Chronic kidney disease, unspecified; I50.9 Heart failure, unspecified; E78.5 Hyperlipidemia, unspecified; F32.9 Major depressive disorder, single episode, unspecified; Z88.8 Allergy status to other drugs, medicaments and biological substances; Z79.899 Other long term (current) drug therapy; Z98.890 Other specified postprocedural states; X58.XXXA Exposure to other specified factors, initial encounter
CPT/HCPCS: 36415; 74176; 80053; 81003; 83605; 83690; 83735; 85025

== ENCOUNTER 2023-04-17 08:52 | Emergency (ER) | payer OTHER ==
[~2023-04-17] VITALS: Ht 177.8 cm; Wt 115.0 kg
[~2023-04-17 08:52] MED LIST changes: +DIPH25CA66 PO; +METH4PAK PO
[2023-04-17 09:30] VITALS: PULSE 95; RESP 21; O2SAT 97
[2023-04-17 10:09] LABS: Basophils # (auto) 0.1 10 ^3/uL (0-0.2); Basophils % (auto) 0.9 % (0.0-2.0); Eosinophils # (auto) 0.3 10 ^3/uL (0-0.8); Eosinophils % (auto) 2.6 % (0.0-7.0); Hematocrit 49.6 % (41.0-53.0); Hemoglobin 16.3 g/dL (13.5-17.5); Lymphocytes # (auto) 2.3 10 ^3/uL (0.4-5.4); Lymphocytes % (auto) 17.5 % (10.0-50.0); Mean Corpuscular Hemoglobin 30.5 pg (28.0-32.0); Mean Corpuscular Hgb Conc. 32.8 g/dL (32.0-36.0); Mean Corpuscular Volume 93.1 fL (80.0-100.0); Monocytes # (auto) 0.9 10 ^3/uL (0-1.3); Monocytes % (auto) 7.1 % (0.0-12.0); Neutrophils # (auto) 9.5 10 ^3/uL (1.6-8.6); Neutrophils % (auto) 71.9 % (37.0-80.0); Nucleated Red Blood Cells % 0.2 %; Red Blood Cells 5.33 10^6/uL (4.5-5.90); White Blood Cell 13.2 10^3/uL (4.4-10.8)
[2023-04-17] MEDS ORDERED: diphenhdrAMINE HCL 50 MG/1 ML VL IV ONE ×2 (10:15→14:30)
[2023-04-17 10:25] LABS: Alanine Aminotransferase 18 U/L (7-40); Albumin 4.3 g/dL (3.2-4.8); Alkaline Phosphatase 96 U/L (46-116); Anion Gap 12 (5-15); Aspartate Aminotransferase 21 U/L (13-40); BUN/Creatinine Ratio 7.9 (10.0-20.0); Bilirubin, Total 1.4 mg/dL (0.2-1.0); Blood Alcohol < 3.0 mg/dL (<10); Blood Urea Nitrogen 11 mg/dL (9-23); Calcium 9.7 mg/dL (8.5-10.1); Carbon Dioxide 24 mmol/L (20-30); Chloride 104 mmol/L (98-107); Glucose 139 mg/dL (74-106); Potassium 3.9 mmol/L (3.5-5.1); Sodium 140 mmol/L (136-145)
[2023-04-17 11:08] LABS: Amphetamine Screen, Urine Neg (NEGATIVE); Barbiturate Scree,Urine Neg (NEGATIVE); Benzodiazephine Screen, Urine Neg (NEGATIVE); Cocaine Screen, Urine Neg (NEGATIVE); Opiate Scree,Urine Neg (NEGATIVE)
[2023-04-17 11:09] LABS: Cannabinoid Screen, Urine Neg (NEGATIVE); Phencyclidine Screen, Urine Neg (NEGATIVE)
[2023-04-17] MEDS: LORazepam 2MG/ML-1ML VIAL IV ONE ×4 (11:10→15:59)
[2023-04-17] MEDS: HALOPERIDOL LACTATE 5 MG/ML INJ VIAL IM ONE ×2 (11:10→14:32)
[2023-04-17 11:23] LABS: Urine Bacteria NONE SEEN /hpf (None Seen); Urine Blood Negative /uL (Negative); Urine Clarity Clear (Clear); Urine Color Yellow (Yellow); Urine Hyaline Cast FEW /lpf (0 - 2); Urine Mucus FEW (None Seen); Urine Protein, UAD TRACE (Negative); Urine Specific Gravity 1.021 (1.001-1.035); Urine Urobilinogen Normal (Negative); Urine WBC 1 /hpf (0 - 3); Urine pH 5.5 (5.0-8.0)
[2023-04-17 11:32] LABS: INR 1.12 (0.9-1.15); Partial Thromboplastin Time 27.2 SEC (24.5-34.5); Prothrombin Time 11.7 sec (9.3-11.8)
[2023-04-17] MEDS: HALOPERIDOL LACTATE 5 MG/ML INJ VIAL IV ONE ×2 (14:36→15:59)
[2023-04-17 19:30] VITALS: PULSE 71; RESP 18; O2SAT 93
[2023-04-17] MEDS ORDERED: hydrALAZINE HCL 20 MG/ML VL IV ONE (20:00)
[2023-04-17 21:01] VITALS: BP 154/62; PULSE 87; RESP 18; TEMP 98.5; O2SAT 97
[2023-04-17] MEDS ORDERED: MIDAZOLAM HCL 5 MG/ML-1ML VIAL IV ONE (21:30)
== END 2023-04-17 16:36 | disposition short-term general hospital (02) ==
LOC: EDBD 08:52 → EDSEX 08:52 → ER 08:52
DX: R40.4 Transient alteration of awareness (principal); E72.20 Disorder of urea cycle metabolism, unspecified; R41.0 Disorientation, unspecified; I13.0 Hypertensive heart and chronic kidney disease with heart failure and stage 1 through stage 4 chronic kidney disease, or unspecified chronic kidney disease; N18.9 Chronic kidney disease, unspecified; I50.9 Heart failure, unspecified; M19.90 Unspecified osteoarthritis, unspecified site; F32.9 Major depressive disorder, single episode, unspecified; E78.5 Hyperlipidemia, unspecified; J44.9 Chronic obstructive pulmonary disease, unspecified; Z88.8 Allergy status to other drugs, medicaments and biological substances; Z79.899 Other long term (current) drug therapy
CPT/HCPCS: 36415; 70450; 71250; 80053; 80307; 80320; 81001; 82140; 83735; 84443; 84484; 85025; 85610; 85730; 93005; 96372; 96374; 96375; 96376; 99285; J0360; J1630; J2060; J2250

== ENCOUNTER 2024-03-09 20:23 | Inpatient (IN) | payer OTHER ==
[~2024-03-09] VITALS: Ht 172.7 cm; Wt 117.0 kg
[~2024-03-09 20:23] MED LIST changes: -ATO40T PO; +ATOR-507 PO; +LEVO25TA2 PO; -LEVO25TA49 PO
--- NOTE | 2024-03-09 20:31 | ED.PDOC ---
SOB-HPI HPI Comments 88-year-old male who came to ER via EMS for shortness of breath. Patient does have history of hypertension, CKF, CHF, and COPD. Patient is on home oxygen at 2 liters/minute. States for the past 4 days he has been with cough with shortness of breath, progressively worsening prompting him to come to the ER. Patient was saturating 88% on room air. Chief Complaint: Shortness of breath Time Seen by MD: 20:30 Primary Care Provider: LILY Looney notes: Nurses Notes Information Source: Patient, Emergency Med Personnel Mode of Arrival: EMS Severity: Moderate Timing: Days Duration: Since onset Context: At Rest, With Light Exertion History of: COPD, CHF Prehospital treatment: Oxygen Modifying Factors: Nothing Associated Signs and Symptoms: Cough Quality: Aching, Tightness Radiation: No Radiation Location: Chest (R), Chest (L) If cough with SOB: Productive Past Medical History PAST MEDICAL HISTORY: Arthritis, CHF, CKF, COPD, Dementia, Depression, High Lipids, HTN Surgical History: Denies all surgeries Family History Family History: Reviewed,noncontributory to illness Social History Smoker: Non-Smoker Alcohol: Denies ETOH Use Drugs: Denies Drug Use Lives In: Home Constitutional: reports: fatigue, weakness; denies: chills, diaphoresis, fever, malaise, sweats, others EENTM: denies: blurred vision, double vision, ear bleeding, ear discharge, ear drainage, ear pain, ear ringing, eye pain, eye redness, hearing loss, mouth pain, mouth swelling, nasal discharge, nose bleeding, nose congestion, nose pain, photophobia, tearing, throat pain, throat swelling, voice changes, others Respiratory: reports: cough, SOB at rest, shortness of breath, SOB with excertion; denies: hemoptysis, orthopnea, stridor, wheezing, others Cardiovascular: denies: chest pain, dizzy spells, diaphoresis, Dyspnea on exertion, edema, irregular heart beat, left arm pain, lightheadedness, palpitations, PND, syncope, others Gastrointestinal: denies: abdomen distended, abdominal pain, blood streaked bowels, constipated, diarrhea, dysphagia, difficulty swallowing, hematemesis, melena, nausea, poor appetite, poor fluid intake, rectal bleeding, rectal pain, vomiting, others Genitourinary: denies: burning, dysuria, flank pain, frequency, hematuria, incontinence, penile discharge, penile sore, pain, testicle pain, testicle swelling, urgency, others Neurological: denies: dizziness, fainting, headache, left sided numbness, left sided weakness, numbness, paresthesia, pre-existing deficit, right sided numbness, right sided weakness, seizure, speech problems, tingling, tremors, weakness, others Musculoskeletal: denies: back pain, gout, joint pain, joint swelling, muscle pain, muscle stiffness, neck pain, others Integumetry: denies: bruises, change in color, change in hair/nails, dryness, laceration, lesions, lumps, rash, wounds, others Allergic/Immunocompromised: denies: Difficulty Healing, Frequent Infections, Hives, Itching, others Hematologic/Lymphatic: denies: anemia, blood clots, easy bleeding, easy bruising, swollen glands, others Endocrine: denies: excessive hunger, excessive sweating, excessive thirst, excessive urination, flushing, intolerance to cold, intolerance to heat, unexplained weight gain, unexplained weight loss, others Psychiatric: denies: anxiety, bipolar disorder, depression, hopeless, panic disorder, schizophrenia, sleepless, suicidal, others Physical Exam General Appearance: Moderate Distress HEENT: Normal ENT Inspection, Pharynx Normal, TMs Normal Neck: Full Range of Motion, Non-Tender, Normal, Normal Inspection Respiratory: Chest Non-Tender, No Accessory Muscle Use, Respiratory Distress, Rhonchi, Wheezing Cardiovascular: No Edema, No JVD, No Murmur, No Gallop, Normal Peripheral Pulses, Regular Rate/Rhythm Breast Exam: Deferred Gastrointestinal: No Organomegaly, Non Tender, No Pulsatile Mass, Normal Bowel Sounds, Soft Genitalia: Deferred Pelvic: Deferred Rectal: Deferred Extremities: No calf tenderness, Normal capillary refill, Normal inspection, Normal range of motion, Non-tender, No pedal edema Musculoskeletal : Apperance: Normal Neurologic: Alert, produce laborer II-XII nml as Tested, No Motor Deficits, Normal Affect, Normal Mood, No Sensory Deficits Cerebellar Function: Normal Reflexes: Normal Skin: Dry, Normal Color, Warm Lymphatic: No Adenopathy Was a procedure done? Was a procedure done?: No Differential Dx Differential Diagnosis: Anxiety, Asthma, Bronchitis, CHF, COPD, Myocardial infarction, Pneumonia, Respiratory Distress X-Ray, Labs, Meds, VS Vital Signs Date Time Temp Pulse Resp B/P (MAP) Pulse Ox O2 Delivery O2 Flow Rate FiO2 03/09/24 22:33 140/89 03/09/24 20:30 85 Facial BiPAP Mask 40 03/09/24 20:23 98.0 86 24 140/89 (106) 88 Lab Test 03/09/24 21:54 03/09/24 20:55 03/09/24 20:53 Range/Units Troponin I High Sensitivity 17 16 </=54 ng/L White Blood Count 9.5 4.4-10.8 10^3/uL Red Blood Count 4.62 4.5-5.90 10^6/uL Hemoglobin 14.4 13.5-17.5 g/dL Hematocrit 44.7 41.0-53.0 % Mean Corpuscular Volume 96.6 80.0-100.0 fL Mean Corpuscular Hemoglobin 31.2 28.0-32.0 pg Mean Corpuscular Hemoglobin Concent 32.3 32.0-36.0 g/dL Red Cell Distribution Width 15.7 H 11.8-14.3 % Platelet Count 208 140-450 10^3/uL Mean Platelet Volume 9.4 6.9-10.8 fL Neutrophils (%) (Auto) 70.7 37.0-80.0 % Lymphocytes (%) (Auto) 16.4 10.0-50.0 % Monocytes (%) (Auto) 8.5 0.0-12.0 % Eosinophils (%) (Auto) 3.8 0.0-7.0 % Basophils (%) (Auto) 0.6 0.0-2.0 % Neutrophils # (Auto) 6.7 1.6-8.6 10 ^3/uL Lymphocytes # (Auto) 1.6 0.4-5.4 10 ^3/uL Monocytes # (Auto) 0.8 0-1.3 10 ^3/uL Eosinophils # (Auto) 0.4 0-0.8 10 ^3/uL Basophils # (Auto) 0.1 0-0.2 10 ^3/uL Nucleated Red Blood Cells 0.3 % Sodium Level 146 H 136-145 mmol/L Potassium Level 4.1 3.5-5.1 mmol/L Chloride Level 110 H 98-107 mmol/L Carbon Dioxide Level 27 20-31 mmol/L Anion Gap 9 5-15 Blood Urea Nitrogen 13 9-23 mg/dL Creatinine 1.48 H 0.700-1.30 mg/dL Glomerular Filtration Rate Calc 46 >90 mL/min BUN/Creatinine Ratio 8.8 L 10.0-20.0 Serum Glucose 118 H 74-106 mg/dL Calcium Level 9.6 8.7-10.4 mg/dL B-Type Natriuretic Peptide 252.99 0-100 pg/mL Blood Gas Specimen Type Venous Blood Gas Sample Site Vbg - n/a Blood Gas Patient Temperature 37.0 Arterial Blood Date Drawn [id number] Jevon Test N/a Venous Blood pH 7.381 7.320-7.430 Venous Blood pCO2 at Patient Temp 43.8 38.0-54.0 mmHg Venous Blood pO2 at Patient Temp < 36.5 23.0-48.0 mmHg Venous Blood HCO3 25.4 22.0-29.0 mmol/L Venous Blood Base Excess 0.0 -2.0-3.0 mmol/L Blood Gas Set Respiration Rate 14.0 Blood Gas Modality Mask - bipap FiO2 % 40.0 Blood Gas EPAP 5 Blood Gas IPAP 14 Current Medications Medications (Trade) Dose Ordered Sig/Juan Route Start Time Stop Time Status Last Admin Albuterol (Ventolin Medneb) 5 mg ONCE ONCE NEB 03/09/24 20:30 03/09/24 20:31 DC 03/09/24 20:45 Ipratropium [place] (Atrovent Medneb) 0.5 mg ONCE ONCE NEB 03/09/24 20:30 03/09/24 20:31 DC 03/09/24 20:45 Furosemide (Lasix Injection) 40 mg ONCE ONCE IV 03/09/24 20:30 03/09/24 20:31 DC 03/09/24 22:33 Time of 1ST Reevaluation: 20:27 Reevaluation 1ST: Unchanged Patient Education/Counseling: Diagnosis, Treatment Family Education/Counseling: No Family Present Departure 1 Departure Time of Disposition: 23:00 ([place] Authorization to Admit here [id number] atient presented with acute shortness of breath concerning for acute on chronic COPD Exacerbation, Pneumonia, ACS, CHF, Pneumothorax. Less likely PE, Dissection. Data: 1. I ordered and reviewed the result of at least 3 labs including a CBC, BMP, and Troponin. 2. I independently interpreted the following tests: Chest X-ray shows pulmonary congestion .Risk:This patient has a high risk of morbidity due to further diagnostic testing or treatment and may suffer from respiratory or cardiac etiology . Workup reveals a likely COPD Exacerbation and patient should be admitted for further workup. and possible expert consultation.) Impression: Primary Impression: COPD exacerbation Additional Impression: Acute respiratory failure Qualified Codes: J96.01 - Acute respiratory failure with hypoxia Disposition: 09 ADMITTED INPATIENT Admit to: [facility] Condition: Serious Critical Care Note Critical Care Time?: Yes (45 min-critical care time only) Critical care comment: Acute hypoxic respiratory failure Authorized and Performed by: Carley Haney MD Total critical care time: Approximately 41 minutes Due to a high probability of clinically significant, life threatening deterioration, the patient required my highest level of preparedness to intervene emergently and I personally spent this critical care time directly and personally managing the patient. This critical care time included obtaining a history; examining the patient; pulse oximetry; ordering and review of studies; arranging urgent treatment with development of a management plan; evaluation of patient's response to treatment; frequent reassessment; and, discussions with other providers. This critical care time was performed to assess and manage the high probability of imminent, life-threatening deterioration that could result in multi-organ failure. It was exclusive of separately billable procedures and treating other patients and teaching time. Please see my other sections and the rest of the note for further information on patient assessment and treatment. Stability Stability form required: No Heart Score Heart Score: Heart Score Response (Comments) Value History Moderate Suspicious 1 EKG Repolarization Disturb 1 Age >65 2 Risk Factors >3 or Hx ASHD 2 Troponin Normal limit 0 Total 6 I personally scribed for CARLEY HANEY MD ([email or web address]) on 03/09/24 at 20:31. Electronically submitted by Robb Lira ([email or web address]). I personally scribed for CARLEY HANEY MD ([email or web address]) on 03/09/24 at 22:29. Electronically submitted by Robb Lira ([email or web address]). CARLEY HANEY MD Mar 09, 2024 20:31
[2024-03-09 20:45] VITALS: PULSE 86; RESP 24; O2SAT 86
[2024-03-09] MEDS: ALBUTEROL SULF 2.5 MG/0.5ML(0.5%) NEB SOLN NEB ONE (20:45)
[2024-03-09] MEDS: IPRATROPIUM BROM 0.5 MG/2.5ML INH SOL NEB ONE (20:45)
[2024-03-09 21:00] VITALS: BP 140/89; PULSE 85; RESP 24; TEMP 98; O2SAT 93
--- NOTE | 2024-03-09 21:09 | DVH ---
CHEST RADIOGRAPH Indication:sob Technique: Single frontal view of the chest was obtained Comparison: CHEST PORTABLE on DOS: 04/05/21 Findings/ IMPRESSION: Limited evaluation as the bilateral lung bases are not evaluated in this study. Mild cardiomegaly. T he bilateral upper and mid lung zones demonstrate no obvious abnormalities.
[2024-03-09 21:11] LABS: Basophils # (auto) 0.1 10 ^3/uL (0-0.2); Basophils % (auto) 0.6 % (0.0-2.0); Eosinophils # (auto) 0.4 10 ^3/uL (0-0.8); Eosinophils % (auto) 3.8 % (0.0-7.0); Hematocrit 44.7 % (41.0-53.0); Hemoglobin 14.4 g/dL (13.5-17.5); Lymphocytes # (auto) 1.6 10 ^3/uL (0.4-5.4); Lymphocytes % (auto) 16.4 % (10.0-50.0); Mean Corpuscular Hemoglobin 31.2 pg (28.0-32.0); Mean Corpuscular Hgb Conc. 32.3 g/dL (32.0-36.0); Mean Corpuscular Volume 96.6 fL (80.0-100.0); Monocytes # (auto) 0.8 10 ^3/uL (0-1.3); Monocytes % (auto) 8.5 % (0.0-12.0); Neutrophils # (auto) 6.7 10 ^3/uL (1.6-8.6); Neutrophils % (auto) 70.7 % (37.0-80.0); Nucleated Red Blood Cells % 0.3 %; Platelet Count (auto) 208 10^3/uL (140-450); Red Blood Cells 4.62 10^6/uL (4.5-5.90); Red Cell Distribution Width 15.7 % (11.8-14.3); White Blood Cell 9.5 10^3/uL (4.4-10.8)
[2024-03-09 21:18] LABS: Chloride 110 mmol/L (98-107); Potassium 4.1 mmol/L (3.5-5.1); Sodium 146 mmol/L (136-145)
[2024-03-09 21:19] LABS: Anion Gap 9 (5-15); Carbon Dioxide 27 mmol/L (20-31)
[2024-03-09 21:20] LABS: Calcium 9.6 mg/dL (8.7-10.4)
[2024-03-09 21:25] LABS: BUN/Creatinine Ratio 8.8 (10.0-20.0); Blood Urea Nitrogen 13 mg/dL (9-23); Glucose 118 mg/dL (74-106)
[2024-03-09] MEDS: FUROSEMIDE 40 MG/4 ML VIAL IV ONE (22:33)
[2024-03-09 23:03] VITALS: O2SAT 93
[2024-03-09 23:47] LABS: Rapid Influenza A Negative (Negative); Rapid Influenza B Negative (Negative)
[2024-03-09 23:48] LABS: COVID19 ANTIGEN SOFIA FIA NEGATIVE (NEGATIVE)
[2024-03-10] VITALS (15 sets, daily range): BP systolic 108–152; BP diastolic 47–68; PULSE 65–98; RESP 18–24; TEMP 97.6–98.4; O2SAT 93–98
[2024-03-10] MEDS ORDERED: ONDANSETRON HCL 4 MG/2 ML VIAL IV PRN (00:30)
[2024-03-10] MEDS ORDERED: ACETAMINOPHEN 325 MG TAB PO PRN (00:30)
[2024-03-10] MEDS ORDERED: DOCUSATE SOD 100 MG CAP PO PRN (00:30)
[2024-03-10] MEDS ORDERED: MORPHINE SULFATE INJ 2 MG/ml SYRG IV PRN (00:30)
[2024-03-10] MEDS ORDERED: NITROGLYCERIN 0.4 MG SL TAB SL PRN (00:30)
[2024-03-10] MEDS ORDERED: HYDROcodone-ACET 5/325MG TAB PO PRN (00:30)
--- NOTE | 2024-03-10 00:37 | DVHHP2 ---
History of Present Illness Reason for Visit: Acute respiratory failure with hypoxia History of Present Illness The patient is a 88-year-old male with multiple past medical history including CHF, COPD, dementia, depression, hyperlipidemia, hypertension, CKF, and arthritis presented to [facility] ED with complaint of shortness of breaths. Patient reports or the past 4 days he has been with cough with shortness of breath, progressively worsening prompting him to come to the ER. Patient was seen and evaluated in the ED, laboratory data shows WBC 9.5, platelets 208, sodium 146, potassium 4.1, BUN 13, creatinine 1.48, glucose 118, troponin 16, BNP 252.99. Chest x-ray revealing cardiomegaly. Please see medication orders section in the computer. On my assessment, patient denied chest pain, no headache, dizziness, no diaphoresis, currently on oxygen. No abdominal pain, no nausea, no vomiting, no fever, no chills. Patient was admitted for further evaluation and medical management. Past Medical History Arthritis, CHF, CKF, COPD, Dementia, Depression, High Lipids, HTN Past Surgical History Denies all surgeries Family History Reviewed, noncontributory to the management of this case. Past Social History The patient lives at home, denies smoking, alcohol or illicit drugs abuse. Review of Systems Constitutional: Yes: Weakness, Other (Fatigue); No: Fever, Chills, Sweats, Malaise Eyes: No: Pain, Vision change, Conjunctivae inflammation, Eyelid inflammation, Other, Redness ENT: No: Ear pain, Ear discharge, Nose pain, Nose discharge, Nose congestion, Mouth pain, Mouth swelling, Throat pain, Throat swelling, Other Respiratory: Cough, Shortness of breath, SOB with excertion, Other (SOB at rest.); No: Dry, Wheezing, Hemoptysis, Pleuritic Pain, Sputum, Wheezing Cardiovascular: No: Chest Pain, Palpitations, Orthopnea, Paroxysmal Noc. Dyspnea, Edema, Lt Headedness, Other Gastrointestinal: No: Nausea, Vomiting, Abdominal Pain, Diarrhea, Constipation, Melena, Hematochezia, Other Genitourinary: No Dysuria, No Frequency, No Incontinence, No Hematuria, No Retention, No Other Musculoskeletal: No: other, neck pain, shoulder pain, arm pain, back pain, hand pain, leg pain, foot pain Skin: No: Rash, Lesions, Jaundice, Bruising, Other Neurological: No: Weakness, Numbness, Incoordination, Change in speech, Confusion, Seizures, Other Allergies: Coded Allergies: Fentanyl (Verified Allergy, Severe, 06/20/22) Medications Current Medications Medications Dose Ordered Sig/Juan Route Start Time Stop Time Status Last Admin Dose Admin Albuterol 2.5 mg Q4HPRN PRN NEB 03/10/24 00:30 UNV Ipratropium [place] 0.5 mg Q4HPRN PRN NEB 03/10/24 00:30 UNV Furosemide 40 mg DAILY IV 03/10/24 10:00 UNV Methylprednisolone Sodium Succinate 40 mg Q8HR IV 03/10/24 06:00 UNV Sodium Chloride 10 ml Q8HR IV 03/10/24 06:00 UNV Acetaminophen/ Hydrocodone Bitart 1 tab Q4HP PRN PO 03/10/24 00:30 UNV Ondansetron HCl 4 mg Q4HP PRN IV 03/10/24 00:30 UNV Docusate Sodium 100 mg BIDPRN PRN PO 03/10/24 00:30 UNV Acetaminophen 650 mg Q6HP PRN PO 03/10/24 00:30 UNV Nitroglycerin 0.4 mg Q5MINP PRN SL 03/10/24 00:30 UNV Morphine Sulfate 2 mg Q30M PRN IV 03/10/24 00:30 UNV Exam Vital Signs Vital Signs Date Time Temp Pulse Resp B/P (MAP) Pulse Ox O2 Delivery O2 Flow Rate FiO2 03/09/24 23:12 93 Nasal Cannula* 3 32 03/09/24 22:33 140/89 03/09/24 21:00 98.0 85 24 98.0 General Appearance: Alert, Oriented X3, Cooperative, No acute distress HEENT: Atraumatic, PERRLA, EOMI, Mucous membr. moist/pink Respiratory: Clear to auscultation, Normal air movement Cardiovascular: Regular rate, Normal S1, Normal S2, No murmurs Abdominal: Normal bowel sounds, Soft, No tenderness, No hepatospenomegaly, No masses Extremities: No clubbing, No cyanosis, No edema, Normal pulses, No tenderness/swelling Skin: No rashes, No breakdown, No significant lesion Neuro: Normal speech, Normal tone, Sensation intact, Cranial nerves 3-12 NL, Reflexes 2+, Other (Generalized weakness) Psych/Mental Status: Mental status NL, Mood NL Labs/Xrays Labs Test 03/09/24 23:13 03/09/24 21:54 03/09/24 20:55 03/09/24 20:53 Range/Units Influenza Type A Antigen Negative Negative Influenza Type B Antigen Negative Negative SARS-CoV-2 Antigen (Rapid) Negative NEGATIVE Troponin I High Sensitivity 17 </=54 ng/L White Blood Count 9.5 4.4-10.8 10^3/uL Red Blood Count 4.62 4.5-5.90 10^6/uL Hemoglobin 14.4 13.5-17.5 g/dL Hematocrit 44.7 41.0-53.0 % Mean Corpuscular Volume 96.6 80.0-100.0 fL Mean Corpuscular Hemoglobin 31.2 28.0-32.0 pg Mean Corpuscular Hemoglobin Concent 32.3 32.0-36.0 g/dL Red Cell Distribution Width 15.7 H 11.8-14.3 % Platelet Count 208 140-450 10^3/uL Mean Platelet Volume 9.4 6.9-10.8 fL Neutrophils (%) (Auto) 70.7 37.0-80.0 % Lymphocytes (%) (Auto) 16.4 10.0-50.0 % Monocytes (%) (Auto) 8.5 0.0-12.0 % Eosinophils (%) (Auto) 3.8 0.0-7.0 % Basophils (%) (Auto) 0.6 0.0-2.0 % Neutrophils # (Auto) 6.7 1.6-8.6 10 ^3/uL Lymphocytes # (Auto) 1.6 0.4-5.4 10 ^3/uL Monocytes # (Auto) 0.8 0-1.3 10 ^3/uL Eosinophils # (Auto) 0.4 0-0.8 10 ^3/uL Basophils # (Auto) 0.1 0-0.2 10 ^3/uL Nucleated Red Blood Cells 0.3 % Sodium Level 146 H 136-145 mmol/L Potassium Level 4.1 3.5-5.1 mmol/L Chloride Level 110 H 98-107 mmol/L Carbon Dioxide Level 27 20-31 mmol/L Anion Gap 9 5-15 Blood Urea Nitrogen 13 9-23 mg/dL Creatinine 1.48 H 0.700-1.30 mg/dL Glomerular Filtration Rate Calc 46 >90 mL/min BUN/Creatinine Ratio 8.8 L 10.0-20.0 Serum Glucose 118 H 74-106 mg/dL Calcium Level 9.6 8.7-10.4 mg/dL B-Type Natriuretic Peptide 252.99 0-100 pg/mL Blood Gas Specimen Type Venous Blood Gas Sample Site Vbg - n/a Blood Gas Patient Temperature 37.0 Arterial Blood Date Drawn Jevon Test N/a Venous Blood pH 7.381 7.320-7.430 Venous Blood pCO2 at Patient Temp 43.8 38.0-54.0 mmHg Venous Blood pO2 at Patient Temp < 36.5 23.0-48.0 mmHg Venous Blood HCO3 25.4 22.0-29.0 mmol/L Venous Blood Base Excess 0.0 -2.0-3.0 mmol/L Blood Gas Set Respiration Rate 14.0 Blood Gas Modality Mask - bipap FiO2 % 40.0 Blood Gas EPAP 5 Blood Gas IPAP 14 PATIENT: YESSICA CELAYA SR ACCT: [id number] UNIT: [id number] : 1935 LOC: ER ROOM / BED: / AGE / SEX: 88 / M ADM STATUS: REG ER SERVICE 35 ORDERING PHYSICIAN: CARLEY HANEY MD PROCEDURE(s): CXRP - CHEST PORTABLE REASON: sob ORDER NUMBER(s): [id number], ACCESSION NUMBER(s): [id number] CHEST RADIOGRAPH Indication:sob Technique: Single frontal view of the chest was obtained Comparison: CHEST PORTABLE on DOS: 04/05/21 Findings/ IMPRESSION: Limited evaluation as the bilateral lung bases are not evaluated in this study. Mild cardiomegaly. The bilateral upper and mid lung zones demonstrate no obvious abnormalities. Assessment/Plan Assessment/Plan Acute respiratory failure with hypoxia COPD with acute exacerbation Acute respiratory failure Acute exacerbation of congestive heart failure Plan 1. Admit to telemetry unit 2. Breathing treatment 3. Pain control management 4. Management of fluids and electrolytes 5. Consultation for pulmonology 6. Diagnostic tests chest x-ray 7. DVT prophylaxis on SCDs 8. Repeat labs CBC, CMP in a.m. 9. Continue with current medical management 10. Treatment plan discussed with patient and RN. Patient verbalized understanding. Plan discussed with: Patient, Other (RN) My Orders Orders - DANY BAUGH DNP Procedure Category Date Status Time Complete Blood Count LAB 03/10/24 Transmitted 04:00 Comprehensive LAB 03/10/24 Transmitted Metabolic Panel 04:00 Albuterol Medneb PHA 03/10/24 Logged (Ventolin Medneb) 00:30 Ipratropium Medneb PHA 03/10/24 Logged (Atrovent Medneb) 00:30 Furosemide Injection PHA 03/10/24 Logged (Lasix Injection) 10:00 Methylprednisolone PHA 03/10/24 Logged Sod Succ (Solu Medrol 00:30 Methylprednisolone PHA 03/10/24 Logged Sod Succ (Solu Medrol 06:00 *Consult CONS 03/10/24 Transmitted / 00:25 Admit ADMIT 03/10/24 Transmitted 00:25 Allergies MELVIN 03/10/24 In Process 00:25 Code Status CODE 03/10/24 Transmitted 00:25 Sodium Chloride Lock PHA 03/10/24 Logged (Saline Lock Ns) 06:00 Oxygen Per Hour RT 03/10/24 Transmitted 00:25 Hydrocodone-Acet PHA 03/10/24 Logged 5/325mg Tab ([place] 00:30 Ondansetron Hcl PHA 03/10/24 Transmitted (Zofran) 00:30 Docusate Sodium PHA 03/10/24 Transmitted Capsule (Colace 00:30 Fall Risk Precautions MELVIN 03/10/[address] 00:25 Complete Blood Count LAB 03/11/24 Verified 04:00 Comprehensive LAB 03/11/24 Verified Metabolic Panel 04:00 Cardiac DIET 03/10/24 Transmitted Diet-2gna,Lofat,Lochol Breakfast Echo 2d Mode Cardiac US 03/10/24 Logged DOP 00:25 Condition: Serious MELVIN 03/10/24 In Process 00:25 Acetaminophen Tablet PHA 03/10/24 Transmitted (Tylenol Tablet) 00:30 Sequential MELVIN 03/10/24 In Process Compression Device Nitroglycerin PHA 03/10/24 Transmitted Sublingual (Ntrostat 00:30 Morphine Sulfate PHA 03/10/24 Transmitted Injection 00:30 Notify Of Changes MELVIN 03/10/24 In Process From Base 00:25 Eeg Tech For MELVIN 03/10/24 In Process 24 Hours 00:25 Emergency Dysrhythmia MELVIN 03/10/24 In Process Protocol 00:25 Rhythm Strips Once MELVIN 03/10/24 In Process Every Shift 00:25 Oxygen By Nasal RT 03/10/24 Transmitted Cannula 00:25 Problem List: (1) Acute respiratory failure with hypoxia (2) Acute respiratory failure (3) COPD with acute exacerbation (4) Acute exacerbation of congestive heart failure Date of Service: Mar 10, 2024 Billing Provider: DANY BAUGH DNP Common Visit Codes: 50522-LWOGOLD INP/OBS CARE (HIGH) DANY BAUGH DNP Mar 10, 2024 00:37
[2024-03-10] MEDS: methylPREDNISolone SOD SUCC 125 MG/2 ML VL IV ONE (01:16)
[2024-03-10 07:05] LABS: Hematocrit 41.6 % (41.0-53.0); Hemoglobin 13.8 g/dL (13.5-17.5); Mean Corpuscular Hemoglobin 31.7 pg (28.0-32.0); Mean Corpuscular Hgb Conc. 33.1 g/dL (32.0-36.0); Mean Corpuscular Volume 95.7 fL (80.0-100.0); Platelet Count (auto) 199 10^3/uL (140-450); Red Blood Cells 4.35 10^6/uL (4.5-5.90); Red Cell Distribution Width 15.4 % (11.8-14.3); White Blood Cell 9.3 10^3/uL (4.4-10.8)
--- NOTE | 2024-03-10 07:09 | ECG ---
[facility] Test Date: 2024-03-09 Test Time: 20:30:08 Pat Name: YESSICA CELAYA Department: ER Room: 0278T Gender: M [employer] Installation Foreman: KATI : 1935 Requested By: CARLEY HANEY Order Number: [id number] Reading MD: Measurements Intervals [place] Rate: 80 P: -86 DC: 159 QRS: 24 QRSD: 152 T: 47 QT: 416 QTc: 480 Interpretive Statements Sinus or ectopic atrial rhythm Right bundle branch block Please click the below link to view image of tracing.
[2024-03-10 07:16] LABS: Alanine Aminotransferase 25 U/L (7-40); Alkaline Phosphatase 163 U/L (46-116); Anion Gap 11 (5-15); Aspartate Aminotransferase 26 U/L (13-40); BUN/Creatinine Ratio 9.8 (10.0-20.0); Blood Urea Nitrogen 16 mg/dL (9-23); Calcium 9.6 mg/dL (8.7-10.4); Carbon Dioxide 26 mmol/L (20-31); Chloride 107 mmol/L (98-107); Potassium 4.5 mmol/L (3.5-5.1); Sodium 144 mmol/L (136-145); Total Protein 6.7 g/dL (5.7-8.2)
[2024-03-10 07:17] LABS: Basophils % (manual) 0 (0.0-2.0); Blast Cells 0; Eosinophils % (manual) 0 (0-7); Glucose 265 mg/dL (74-106); Metamyelocytes % 0; Myelocytes % 0; Promyelocytes % 0; Reactive Lymphocytes 0
[2024-03-10 08:08] LABS: Anisocytosis Slight; Band Neutrophils % (manual) 2; Lymphocytes % (manual) 5 (10.0-50.0); Monocytes % (manual) 1 (0-12); Platelet Estimate Adequate
[2024-03-10] MEDS: FUROSEMIDE 40 MG/4 ML VIAL IV SCH (10:11)
[2024-03-10] MEDS: IPRATROPIUM BROM 0.5 MG/2.5ML INH SOL NEB PRN (10:42)
[2024-03-10] MEDS: ALBUTEROL SULF 2.5 MG/0.5ML(0.5%) NEB SOLN NEB PRN (10:42)
[2024-03-10] MEDS: methylPREDNISolone SOD SUCC 40 MG/ML VL IV SCH (14:00)
[2024-03-10] MEDS: SODIUM CHLOR 0.9% PF (SALINE LOCK) 10ML VIAL/SYR IV SCH (14:00)
[2024-03-10] MEDS ORDERED: ASPI1TAB19 PO (15:45)
[2024-03-10] MEDS ORDERED: ESCI20TA PO (15:45)
[2024-03-10] MEDS ORDERED: LAMO25TA2 PO (15:45)
[2024-03-10] MEDS ORDERED: FURO1TAB31 PO (15:45)
[2024-03-10] MEDS ORDERED: BUPR150T8 PO (15:45)
[2024-03-10] MEDS ORDERED: ATOR-507 PO (15:45)
[2024-03-10] MEDS ORDERED: LOSA100T25 PO (15:45)
[2024-03-10] MEDS ORDERED: TRAZ-181 PO (15:45)
[2024-03-10] MEDS ORDERED: TAMS-35 PO (15:45)
--- NOTE | 2024-03-10 16:40 | DVHSR ---
APPROVED REPORT EXAM: LIMITED Two-dimensional and M-mode echocardiogram with Doppler and color Doppler. Blood Pressure: 118/47 mmHg INDICATION CHF Exacerbation Surgery/Intervention Valve Replacement: RISK FACTORS Height: 5' 8", Weight: 275 DIMENSIONS LVDd5.0 (3.8-5.7cm)LA (2D)4.3 (1.9-4.0cm)Aortic Root (2.0-3.7cm) LVDs3.3 (2.5-4.0cm)LA (MM) (1.9-4.0cm)Aortic Cusp Exc (1.5-2.0cm) EF (%) 63.0 (55-70%)Rt. Atrium7.3 (1.9-4.0cm)Asc. Aorta cm IVSd1.1 (0.7-1.1cm)RV (D) (1.8-2.4cm) PWd1.0 (0.7-1.1cm) Mitral Valve MitralMitral Stenosis E wave1.10m/sMV Mean GR.mmHg A wave1.60m/sMV Peak GR.mmHg E/A ratio0.72D MVAcm2 Aortic Valve Aortic ValveAortic Stenosis V11.00m/Krish Mean GR.10mmHg V22.20m/Krish Peak GR.21mmHg Pulmonic Valve V20.60m/s Tricuspid Valve TR Velocity2.20m/s [id number] Conclusion lvef 50% by visual estimate RV enlarged small pericardial effusion noted, no HD compromise
[2024-03-10] MEDS: buPROPion HCL 100 MG TAB PO ONE (18:15)
[2024-03-10] MEDS: ASPirin 81 mg TAB PO ONE (18:16)
[2024-03-10] MEDS: lamoTRIgine 25 MG TAB PO ONE (18:16)
[2024-03-10] MEDS: ATORVASTATIN 20 MG TAB PO ONE (18:16)
[2024-03-10] MEDS: LOSARTAN POTASSIUM 50 MG TAB PO ONE (18:17)
[2024-03-10] MEDS: CITALOPRAM HYDROBR 20 MG TAB PO ONE (18:17)
[2024-03-10] MEDS: TAMSULOSIN HYDROCHLORIDE 0.4 MG CAP PO SCH (18:17)
--- NOTE | 2024-03-10 18:56 | DVHINCON2 ---
Date of service: Mar 10, 2024 Referring Physician ÁNGEL Ruvalcaba Reason for Consultation Dyspnea History of Present Illness 88-year-old man history of CHF, COPD, dementia, depression, hyperlipidemia, hypertension, chronic kidney disease, arthritis who presented with shortness of breath. He has been having a cough and shortness of breath. He has progressively gotten worse. This prompted his ED visit. Pulmonary consultation is called for evaluation of shortness of breath. Review of systems: No nausea, vomiting, diarrhea constipation. No fever or chills. No abdominal pain. No chest pain or palpitations. Past medical history: Arthritis, CHF, CKD, COPD, dementia, depression, hyperlipidemia, hypertension Past surgical history: None mentioned in prior surgeries. Medications: Reviewed Allergies: Fentanyl Family history: No family history of premature CAD. No family history of lung disease Social history: Nonsmoker. No alcohol or illicit drug use. Lives at home. Family History: Alcoholism G8 FATHER FH: cancer G8 MOTHER FH: coronary artery disease G8 FATHER Allergies: Coded Allergies: Fentanyl (Verified Allergy, Severe, 06/20/22) Home Meds Active Scripts Methylprednisolone (Medrol Dosepak) 4 Mg Rj, 4 MG PO UD, #21 TAB UAD Prov:JESSICA PRUITT MD 06/20/22 Diphenhydramine Hcl (Benadryl Allergy) 25 Mg Cap, 1 CAP PO QPM, #30 CAP 1 Refill Prov:JESSICA PRUITT MD 06/20/22 Levothyroxine Sodium (Synthroid) 25 Mcg Tab, 1 TAB PO QAM, #30 TAB 5 Refills Prov:TIFFANIE METZGER MD 08/31/19 Fluticasone-Salmeterol (Advair Diskus 250/50) 1 Puff Ih, 1 PUFF IN BID for 30 Days, #60 INH Prov:MartínLetty munson08/28/19 Reported Medications Atorvastatin Calcium (Lipitor) 40 Mg Tab, 40 MG PO QPM, TAB 03/10/24 Furosemide (Lasix) 40 Mg Tab, 40 MG PO DAILY, TAB 03/10/24 Losartan Potassium & Hydrochlo (Hyzaar) 1 Tab Tab, 1 TAB PO DAILY, TAB 03/10/24 Aspirin (Aspirin) 81 Mg Tab, 81 MG PO DAILY, TAB 03/10/24 Trazodone HCl (Trazodone Hydrochloride) 50 Mg Tab, 25 MG PO HS for at night for sleep, TAB 03/10/24 Lamotrigine (Lamictal) 25 Mg Tab, 25 MG PO DAILY, TAB 03/10/24 Tamsulosin Hcl (Flomax) 0.4 Mg Cap, 0.4 MG PO DAILY, CAP 03/10/24 Escitalopram Oxalate (Lexapro) 20 Mg Tab, 20 MG PO DAILY, TAB 03/10/24 Bupropion Hcl (Wellbutrin Sr) 150 Mg Tab, 150 MG PO DAILY, TAB 03/10/24 Furosemide (LASIX TABLET) 40 Mg Tb, 40 MG PO DAILY 04/24/14 Potassium Chloride (K-Tabs) 10 Meq Tab, 10 MEQ PO DAILY, TAB 04/24/14 Atorvastatin Calcium (Lipitor) 40 Mg Tab, 40 MG PO DAILY, TAB 04/24/14 Losartan Potassium (COZAAR TABLET) 50 Mg Tb, 50 MG PO DAILY 04/24/14 Aspirin (Aspirin Low Dose) 81 Mg Chw, 1 TAB PO DAILY, #30 TAB 3 Refills 04/24/14 Sertraline Hcl (Zoloft) 100 Mg Tab, 100 MG PO DAILY, TAB 04/24/14 Bupropion Hcl (Wellbutrin) 100 Mg Tab, 200 MG PO BID, TAB 04/24/14 Current Medications Current Medications Medications (Trade) Dose Ordered Sig/Juan Route PRN Reason Start Time Stop Time Status Last Admin Albuterol (Ventolin Medneb) 2.5 mg Q4HPRN PRN NEB SHORTNESS OF BREATH 03/10/24 00:30 03/10/24 16:43 DC 03/10/24 10:42 Ipratropium [place] (Atrovent Medneb) 0.5 mg Q4HPRN PRN NEB SHORTNESS OF BREATH 03/10/24 00:30 03/10/24 16:43 DC 03/10/24 10:42 Furosemide (Lasix Injection) 40 mg DAILY IV 03/10/24 10:00 03/10/24 10:11 Methylprednisolone Sodium Succinate (Solu Medrol) 40 mg Q8HR IV 03/10/24 06:00 03/10/24 14:00 Sodium Chloride (Saline [place] N[place]) 10 ml Q8HR IV 03/10/24 06:00 Acetaminophen/ Hydrocodone Bitart ([place] 5/325MG Tab) 1 tab Q4HP PRN PO MODERATE PAIN (4-6 PAIN SCALE) 03/10/24 00:30 03/10/24 16:34 DC Ondansetron HCl (Zofran) 4 mg Q4HP PRN IV NAUSEA / VOMITING 03/10/24 00:30 03/10/24 16:34 DC Docusate Sodium (Colace Capsule) 100 mg BIDPRN PRN PO FOR CONSTIPATION 03/10/24 00:30 Acetaminophen (Tylenol Tablet) 650 mg Q6HP PRN PO PAIN SCALE 1-3 OR TEMP>100.4 03/10/24 00:30 Nitroglycerin (Ntrostat Sublingual) 0.4 mg Q5MINP PRN SL FOR CHEST PAIN 03/10/24 00:30 03/10/24 16:34 DC Morphine Sulfate 2 mg Q30M PRN IV FOR CHEST PAIN 03/10/24 00:30 03/10/24 16:34 DC Bupropion HCl (Wellbutrin Tablet) 150 mg DAILY PO 03/11/24 10:00 Citalopram Hydrobromide (CeleXA TABLET) 20 mg DAILY PO 03/11/24 10:00 Tamsulosin HCl (Flomax) 0.4 mg QPM PO 03/10/24 18:00 03/10/24 18:17 Lamotrigine (LaMICtal TABLET) 25 mg DAILY PO 03/11/24 10:00 Trazodone HCl (Desyrel) 100 mg HS PO 03/10/24 22:00 Aspirin 81 mg DAILY PO 03/11/24 10:00 Losartan Potassium (Cozaar Tablet) 50 mg DAILY PO 03/11/24 10:00 Albuterol (Ventolin Medneb) 2.5 mg Q6HR NEB 03/10/24 18:00 Ipratropium [place] (Atrovent Medneb) 0.5 mg Q6HR NEB 03/10/24 18:00 Vital Signs Vital Signs Date Time Temp Pulse Resp B/P (MAP) Pulse Ox O2 Delivery O2 Flow Rate FiO2 03/10/24 18:17 143/62 03/10/24 16:00 98.4 72 23 97 98.4 03/10/24 10:32 Room Air 0.0 03/10/24 10:32 21 Physical Exam Gen.: Patient lying in bed in no apparent distress. On supplemental oxygen. Head: Normocephalic, atraumatic Eyes: EOMI/PERRLA. Ears: Normal hearing. Normal anatomy. Neck/trachea: Trachea midline, supple. Nose: Normal external anatomy. Mouth: Moist mucous membranes. Chest: Decreased air entry bilaterally. No wheezing or rhonchi. Cardio vascular: Positive S1, positive S2. Regular rate and rhythm. Abdomen: Positive bowel sounds in all 4 quadrants. Soft, non-tender, non- distended. : Deferred. Rectal: Deferred Skin: Warm, dry. Extremities: 2+ radial pulses bilaterally. No lower extremity edema. Neuro: Awake, alert, oriented x3. No gross motor or sensory deficits. Cranial nerves II through XII intact. Gait not assessed. Labs/Diagnostic Data Labs Test 03/10/24 06:37 03/09/24 23:13 03/09/24 21:54 03/09/24 20:55 Range/Units White Blood Count 9.3 4.4-10.8 10^3/uL Red Blood Count 4.35 L 4.5-5.90 10^6/uL Hemoglobin 13.8 13.5-17.5 g/dL Hematocrit 41.6 41.0-53.0 % Mean Corpuscular Volume 95.7 80.0-100.0 fL Mean Corpuscular Hemoglobin 31.7 28.0-32.0 pg Mean Corpuscular Hemoglobin Concent 33.1 32.0-36.0 g/dL Red Cell Distribution Width 15.4 H 11.8-14.3 % Platelet Count 199 140-450 10^3/uL Mean Platelet Volume 9.4 6.9-10.8 fL Neutrophils (%) (Auto) 37.0-80.0 % Lymphocytes (%) (Auto) 10.0-50.0 % Monocytes (%) (Auto) 0.0-12.0 % Basophils (%) (Auto) 0.0-2.0 % Neutrophils # (Auto) 1.6-8.6 10 ^3/uL Lymphocytes # (Auto) 0.4-5.4 10 ^3/uL Monocytes # (Auto) 0-1.3 10 ^3/uL Differential Total Cells Counted 100.0 100 Neutrophils % (Manual) 92 H 37.0-80.0 Band Neutrophils % (Manual) 2 Lymphocytes % (Manual) 5 L 10.0-50.0 Monocytes % (Manual) 1 0-12 Eosinophils % (Manual) 0 0-7 Basophils % (Manual) 0 0.0-2.0 Metamyelocytes % (manual) 0 Myelocytes % (Manual) 0 Promyelocytes % (Manual) 0 Blast Cells % (Manual) 0 Reactive Lymphocytes 0 Platelet Estimate Adequate Anisocytosis (manual) Slight Sodium Level 144 136-145 mmol/L Potassium Level 4.5 3.5-5.1 mmol/L Chloride Level 107 98-107 mmol/L Carbon Dioxide Level 26 20-31 mmol/L Anion Gap 11 5-15 Blood Urea Nitrogen 16 9-23 mg/dL Creatinine 1.64 H 0.700-1.30 mg/dL Glomerular Filtration Rate Calc 40 >90 mL/min BUN/Creatinine Ratio 9.8 L 10.0-20.0 Serum Glucose 265 #H 74-106 mg/dL Calcium Level 9.6 8.7-10.4 mg/dL Total Bilirubin 1.0 0.2-1.0 mg/dL Aspartate Amino Transferase (AST) 26 13-40 U/L Alanine Aminotransferase (ALT) 25 7-40 U/L Alkaline Phosphatase 163 H 46-116 U/L Total Protein 6.7 5.7-8.2 g/dL Albumin 4.0 3.2-4.8 g/dL Influenza Type A Antigen Negative Negative Influenza Type B Antigen Negative Negative SARS-CoV-2 Antigen (Rapid) Negative NEGATIVE Troponin I High Sensitivity 17 </=54 ng/L Eosinophils (%) (Auto) 3.8 0.0-7.0 % Eosinophils # (Auto) 0.4 0-0.8 10 ^3/uL Basophils # (Auto) 0.1 0-0.2 10 ^3/uL Nucleated Red Blood Cells 0.3 % B-Type Natriuretic Peptide 252.99 0-100 pg/mL Test 03/09/24 20:53 Range/Units Blood Gas Specimen Type Venous Blood Gas Sample Site Vbg - n/a Blood Gas Patient Temperature 37.0 Arterial Blood Date Drawn [id number] Jevon Test N/a Venous Blood pH 7.381 7.320-7.430 Venous Blood pCO2 at Patient Temp 43.8 38.0-54.0 mmHg Venous Blood pO2 at Patient Temp < 36.5 23.0-48.0 mmHg Venous Blood HCO3 25.4 22.0-29.0 mmol/L Venous Blood Base Excess 0.0 -2.0-3.0 mmol/L Blood Gas Set Respiration Rate 14.0 Blood Gas Modality Mask - bipap FiO2 % 40.0 Blood Gas EPAP 5 Blood Gas IPAP 14 Assessment Impression: Acute hypoxic respiratory failure Acute exacerbation of COPD Acute exacerbation of CHF Atelectasis Morbid obesity with a BMI of 40 Plan: Supplemental oxygen Keep O2 saturation above 92%. ABG reviewed. Compensated. BiPAP PRN. IPAP 14, EPAP five. FiO2 Chest x-ray imaging report reviewed. No acute opacities. No pleural effusion pneumothorax. Continue bronchodilators. Monitor renal function Monitor electrolytes Supplement as necessary. Monitor ins and outs. DVT prophylaxis-SCDs Prognosis: Poor given multiple comorbidities. Rest of plan per hospitalist and other consultants. Thank you ÁNGEL Ruvalcaba for allowing me to participate in this patient's care. Further recommendations will depend on patient's clinical course. Please do not hesitate to contact me if you have any questions or concerns. This medical document was created using an electronic medical record system with [employer] dictation system. Although this document has been carefully reviewed, there may still be some phonetic and typographical errors. These areas are purely typographical due to imperfections of the software programs, and do not reflect any compromise in the patient's medical care. Plan discussed with: Patient, Other (RN, [employer]) VIRGIL GASCA MD Mar 10, 2024 18:56
[2024-03-10] MEDS: IPRATROPIUM BROM 0.5 MG/2.5ML INH SOL NEB SCH (18:57)
[2024-03-10] MEDS: ALBUTEROL SULF 2.5 MG/0.5ML(0.5%) NEB SOLN NEB SCH (18:57)
[2024-03-10] MEDS: traZODone HCL 50 MG TAB PO SCH (21:01)
[2024-03-11] VITALS (13 sets, daily range): BP systolic 100–161; BP diastolic 52–95; PULSE 62–78; RESP 16–21; TEMP 97.8–98.3; O2SAT 92–99
[2024-03-11 05:15] LABS: Basophils # (auto) 0 10 ^3/uL (0-0.2); Basophils % (auto) 0.1 % (0.0-2.0); Eosinophils # (auto) 0 10 ^3/uL (0-0.8); Hematocrit 39.5 % (41.0-53.0); Hemoglobin 13.1 g/dL (13.5-17.5); Lymphocytes # (auto) 0.6 10 ^3/uL (0.4-5.4); Lymphocytes % (auto) 8.1 % (10.0-50.0); Mean Corpuscular Hemoglobin 31.4 pg (28.0-32.0); Mean Corpuscular Hgb Conc. 33.2 g/dL (32.0-36.0); Mean Corpuscular Volume 94.7 fL (80.0-100.0); Monocytes # (auto) 0.1 10 ^3/uL (0-1.3); Monocytes % (auto) 1.5 % (0.0-12.0); Neutrophils # (auto) 6.6 10 ^3/uL (1.6-8.6); Neutrophils % (auto) 90.3 % (37.0-80.0); Platelet Count (auto) 180 10^3/uL (140-450); Red Blood Cells 4.18 10^6/uL (4.5-5.90); Red Cell Distribution Width 15.5 % (11.8-14.3); White Blood Cell 7.3 10^3/uL (4.4-10.8)
[2024-03-11 05:42] LABS: Alanine Aminotransferase 28 U/L (7-40); Albumin 3.8 g/dL (3.2-4.8); Alkaline Phosphatase 133 U/L (46-116); Anion Gap 8 (5-15); Aspartate Aminotransferase 22 U/L (13-40); BUN/Creatinine Ratio 16.6 (10.0-20.0); Calcium 9.6 mg/dL (8.7-10.4); Carbon Dioxide 28 mmol/L (20-31); Chloride 103 mmol/L (98-107); Glucose 282 mg/dL (74-106); Potassium 4.9 mmol/L (3.5-5.1); Sodium 139 mmol/L (136-145)
[2024-03-11 05:43] LABS: Bilirubin, Total 0.8 mg/dL (0.2-1.0); Total Protein 6.4 g/dL (5.7-8.2)
[2024-03-11 05:45] LABS: Blood Urea Nitrogen 29 mg/dL (9-23)
[2024-03-11] MEDS: lamoTRIgine 25 MG TAB PO SCH (09:09)
[2024-03-11] MEDS: ASPirin 81 mg TAB PO SCH (09:10)
[2024-03-11] MEDS: buPROPion HCL 75 MG TAB PO SCH (09:10)
[2024-03-11] MEDS: LOSARTAN POTASSIUM 50 MG TAB PO SCH (09:10)
[2024-03-11] MEDS: CITALOPRAM HYDROBR 20 MG TAB PO SCH (09:10)
--- NOTE | 2024-03-11 12:07 | DVHPN2 ---
Reviewed: Care Plan, H&P, Labs, Medications, Previous Orders, Radiology Changes from previous H/P or p: No Changes Eyes: No Pain, No Vision change, No Conjunctivae inflammation, No Eyelid inflammation, No Other, No Redness ENT: No Ear pain, No Ear discharge, No Nose pain, No Nose discharge, No Nose congestion, No Mouth pain, No Mouth swelling, No Throat pain, No Throat swelling, No Other Cardiovascular: No Chest Pain, No Palpitations, No Orthopnea, No Paroxysmal Noc. Dyspnea, No Edema, No Lt Headedness, No Other Respiratory: Cough; No Dry; Shortness of breath, SOB with excertion; No Wheezing, No Hemoptysis, No Pleuritic Pain, No Sputum; Other (SOB at rest.) Gastrointestinal: No Nausea, No Vomiting, No Abdominal Pain, No Diarrhea, No Constipation, No Melena, No Hematochezia, No Other Genitourinary: No Dysuria, No Frequency, No Incontinence, No Hematuria, No Retention, No Other Musculoskeletal: No other, No neck pain, No shoulder pain, No arm pain, No back pain, No hand pain, No leg pain, No foot pain Skin: No Rash, No Lesions, No Jaundice, No Bruising, No Other Objective Vitals Vital Signs Date Time Temp Pulse Resp B/P (MAP) Pulse Ox O2 Delivery O2 Flow Rate FiO2 03/11/24 11:45 93 Nasal Cannula 3.0 03/11/24 11:45 32 03/11/24 09:11 117/72 03/11/24 09:00 97.8 78 16 97.8 Intake/Output Intake and Output 03/11/24 07:00 Intake Total 1300 ml Output Total 1500 ml Balance -200 ml Intake Oral 1300 ml Output Urine Total 1500 ml # Voids 2 # Bowel Movements 2 Medications Current Medications Medications Dose Ordered Sig/Juan Route Start Time Stop Time Status Last Admin Dose Admin Furosemide 40 mg DAILY IV 03/10/24 10:00 03/11/24 09:11 40 MG Methylprednisolone Sodium Succinate 40 mg Q8HR IV 03/10/24 06:00 03/11/24 05:09 40 MG Sodium Chloride 10 ml Q8HR IV 03/10/24 06:00 03/11/24 05:09 10 ML Docusate Sodium 100 mg BIDPRN PRN PO 03/10/24 00:30 Acetaminophen 650 mg Q6HP PRN PO 03/10/24 00:30 Bupropion HCl 150 mg DAILY PO 03/11/24 10:00 03/11/24 09:10 150 MG Citalopram Hydrobromide 20 mg DAILY PO 03/11/24 10:00 03/11/24 09:10 20 MG Tamsulosin HCl 0.4 mg QPM PO 03/10/24 18:00 03/10/24 18:17 0.4 MG Lamotrigine 25 mg DAILY PO 03/11/24 10:00 03/11/24 09:09 25 MG Trazodone HCl 100 mg HS PO 03/10/24 22:00 03/10/24 21:01 100 MG Aspirin 81 mg DAILY PO 03/11/24 10:00 03/11/24 09:10 81 MG Losartan Potassium 50 mg DAILY PO 03/11/24 10:00 Albuterol 2.5 mg Q6HR NEB 03/10/24 18:00 03/11/24 06:42 2.5 MG Ipratropium [place] 0.5 mg Q6HR NEB 03/10/24 18:00 03/11/24 06:42 0.5 MG Laboratory Results Laboratory Tests 03/11/24 04:36 Chemistry Test 03/11/24 04:36 Albumin 3.8 g/dL (3.2-4.8) Calcium Level 9.6 mg/dL (8.7-10.4) Total Protein 6.4 g/dL (5.7-8.2) LFT Test 03/11/24 04:36 Alanine Aminotransferase (ALT) 28 U/L (7-40) Alkaline Phosphatase 133 U/L (46-116) H Aspartate Amino Transferase (AST) 22 U/L (13-40) Total Bilirubin 0.8 mg/dL (0.2-1.0) Labs and/or images reviewed: Labs reviewed by me, Image(s) reviewed by me Assessment/Plan Assessment/Plan Acute hypoxic respiratory failure Acute exacerbation of COPD: Albuterol Atrovent Solu-Medrol: Consult by Neptali appreciated Acute exacerbation of CHF with 3+ bilateral pedal edema Lasix, BNP 252, echocardiogram, cardiology consult Atelectasis Hypertension Hypercholesterolemia Dementia Depression Chronic kidney disease Morbid obesity with BMI of 40 Vivi test negative COVID test negative Time spent 65 minutes Patient is full code Advanced care planning time 20 minutes Plan discussed with: Patient Date of Service: Mar 11, 2024 Billing Provider: EPIFANIO DUVAL MD Common Visit Codes: [id number] CARE 30-74 MIN EPIFANIO DUVAL MD Mar 11, 2024 12:07
[2024-03-11] MEDS: FUROSEMIDE 40 MG/4 ML VIAL IV SCH (12:30)
--- NOTE | 2024-03-11 15:02 | DVHINCON2 ---
Date Seen: Mar 11, 2024 Referring Physician Cl Reason for Consultation CHF exacerbation History of Present Illness 88-year-old male with PMH for HTN, diabetes, s/p TAVR at [place] 2019 for which at that time had normal coronary angiogram during workup, chronic HFpEF, HLD, CKD, dementia, and COPD presents to the hospital with shortness of breath. Patient is having progressive shortness of breath more so on exertion unable to really move especially with pain to right lower extremity knee area he has been noticing increased bilateral lower extremity edema. Endorses compliance with diuretic and states he watches his fluid intake. Patient currently taking Lasix 40 mg p.o. daily per med rec. Upon evaluation patient noted elevated BNP of 252. CXR showing cardiomegaly no congestion/edema on report. Troponin trending negative x2. Past Medical History As above. Past Surgical History As stated above Family History: Alcoholism G8 FATHER FH: cancer G8 MOTHER FH: coronary artery disease G8 FATHER Social History Denies alcohol, tobacco, or illicit drug use. Allergies: Coded Allergies: Fentanyl (Verified Allergy, Severe, 06/20/22) Home Meds Active Scripts Methylprednisolone (Medrol Dosepak) 4 Mg Rj, 4 MG PO UD, #21 TAB UAD Prov:JESSICA PRUITT MD 06/20/22 Diphenhydramine Hcl (Benadryl Allergy) 25 Mg Cap, 1 CAP PO QPM, #30 CAP 1 Refill Prov:JESSICA PRUITT MD 06/20/22 Levothyroxine Sodium (Synthroid) 25 Mcg Tab, 1 TAB PO QAM, #30 TAB 5 Refills Prov:TIFFANIE METZGER MD 08/31/19 Fluticasone-Salmeterol (Advair Diskus 250/50) 1 Puff Ih, 1 PUFF IN BID for 30 Days, #60 INH Prov:Stanford Zimmer 08/28/19 Reported Medications Atorvastatin Calcium (Lipitor) 40 Mg Tab, 40 MG PO QPM, TAB 03/10/24 Furosemide (Lasix) 40 Mg Tab, 40 MG PO DAILY, TAB 03/10/24 Losartan Potassium & Hydrochlo (Hyzaar) 1 Tab Tab, 1 TAB PO DAILY, TAB 03/10/24 Aspirin (Aspirin) 81 Mg Tab, 81 MG PO DAILY, TAB 03/10/24 Trazodone HCl (Trazodone Hydrochloride) 50 Mg Tab, 25 MG PO HS for at night for sleep, TAB 03/10/24 Lamotrigine (Lamictal) 25 Mg Tab, 25 MG PO DAILY, TAB 03/10/24 Tamsulosin Hcl (Flomax) 0.4 Mg Cap, 0.4 MG PO DAILY, CAP 03/10/24 Escitalopram Oxalate (Lexapro) 20 Mg Tab, 20 MG PO DAILY, TAB 03/10/24 Bupropion Hcl (Wellbutrin Sr) 150 Mg Tab, 150 MG PO DAILY, TAB 03/10/24 Furosemide (LASIX TABLET) 40 Mg Tb, 40 MG PO DAILY 04/24/14 Potassium Chloride (K-Tabs) 10 Meq Tab, 10 MEQ PO DAILY, TAB 04/24/14 Atorvastatin Calcium (Lipitor) 40 Mg Tab, 40 MG PO DAILY, TAB 04/24/14 Losartan Potassium (COZAAR TABLET) 50 Mg Tb, 50 MG PO DAILY 04/24/14 Aspirin (Aspirin Low Dose) 81 Mg Chw, 1 TAB PO DAILY, #30 TAB 3 Refills 04/24/14 Sertraline Hcl (Zoloft) 100 Mg Tab, 100 MG PO DAILY, TAB 04/24/14 Bupropion Hcl (Wellbutrin) 100 Mg Tab, 200 MG PO BID, TAB 04/24/14 Current Medications Current Medications Medications (Trade) Dose Ordered Sig/Juan Route PRN Reason Start Time Stop Time Status Last Admin Bupropion HCl (Wellbutrin Tablet) 150 mg DAILY PO 03/11/24 10:00 03/11/24 09:10 Citalopram Hydrobromide (CeleXA TABLET) 20 mg DAILY PO 03/11/24 10:00 03/11/24 09:10 Tamsulosin HCl (Flomax) 0.4 mg QPM PO 03/10/24 18:00 03/10/24 18:17 Lamotrigine (LaMICtal TABLET) 25 mg DAILY PO 03/11/24 10:00 03/11/24 09:09 Trazodone HCl (Desyrel) 100 mg HS PO 03/10/24 22:00 03/10/24 21:01 Aspirin 81 mg DAILY PO 03/11/24 10:00 03/11/24 09:10 Losartan Potassium (Cozaar Tablet) 50 mg DAILY PO 03/11/24 10:00 Albuterol (Ventolin Medneb) 2.5 mg Q6HR NEB 03/10/24 18:00 03/11/24 06:42 Ipratropium [place] (Atrovent Medneb) 0.5 mg Q6HR NEB 03/10/24 18:00 03/11/24 06:42 Furosemide (Lasix Injection) 40 mg BIDD IV 03/11/24 12:30 Review of Systems Constitutional: No: Fever, Chills, Sweats, , Malaise, Other positive: Weakness Eyes: No: Pain, Vision change, Conjunctivae inflammation, Eyelid inflammation, Other, Redness ENT: No: Ear pain, Ear discharge, Nose pain, Nose discharge, Nose congestion, Mouth pain, Mouth swelling, Throat pain, Throat swelling, Other Respiratory: No: Cough, Dry, , Wheezing, Hemoptysis, Pleuritic Pain, Sputum, Wheezing, Other positive: Shortness of breath, SOB with exertion Cardiovascular: ; No: Chest Pain Palpitations, Orthopnea, Paroxysmal Noc. Dyspnea, , Lt Headedness, Other positive: Edema Gastrointestinal: No: Nausea, Vomiting, Abdominal Pain, Diarrhea, Constipation, Melena, Hematochezia, Other Genitourinary: No Dysuria, No Frequency, No Incontinence, No Hematuria, No Retention, No Other Musculoskeletal: neck pain; No: other, shoulder pain, arm pain, back pain, hand pain, leg pain, foot pain Skin: No: Lesions, Jaundice, Bruising, Other positive: Rash, Neurological: Other (Dizziness, headache.); No: Weakness, Numbness, Incoordination, Change in speech, Confusion, Seizures Vital Signs Vital Signs Date Time Temp Pulse Resp B/P (MAP) Pulse Ox O2 Delivery O2 Flow Rate FiO2 03/11/24 13:00 98.0 74 18 100/52 (68) 98 98.0 03/11/24 11:45 Nasal Cannula 3.0 03/11/24 11:45 32 Physical Exam General appearance: Patient is well-developed, well-nourished, in mild acute distress. HEENT: Exam shows: Normocephalic, atraumatic, PERRLA, EOMI Neck: Supple, no bruits Chest: Equal chest excursion bilaterally. Breath sounds rhonchi/diminished. Heart: Rhythm: Regular rate; no murmur or gallop Abdomen: Exam shows: Soft, nontender, nondistended Musculoskeletal: No clubbing, no cyanosis, + lower extremity edema Dermatology: Skin warm, moist. Rash Neurological: Exam shows: Alert and oriented x3, normal speech Available prior records, labs, EKG, rhythm strips reviewed and interpreted Labs/Diagnostic Data Labs Test 03/11/24 04:36 03/10/24 06:37 03/09/24 23:13 03/09/24 21:54 Range/Units White Blood Count 7.3 4.4-10.8 10^3/uL Red Blood Count 4.18 L 4.5-5.90 10^6/uL Hemoglobin 13.1 L 13.5-17.5 g/dL Hematocrit 39.5 L 41.0-53.0 % Mean Corpuscular Volume 94.7 80.0-100.0 fL Mean Corpuscular Hemoglobin 31.4 28.0-32.0 pg Mean Corpuscular Hemoglobin Concent 33.2 32.0-36.0 g/dL Red Cell Distribution Width 15.5 H 11.8-14.3 % Platelet Count 180 140-450 10^3/uL Mean Platelet Volume 9.6 6.9-10.8 fL Neutrophils (%) (Auto) 90.3 H 37.0-80.0 % Lymphocytes (%) (Auto) 8.1 L 10.0-50.0 % Monocytes (%) (Auto) 1.5 0.0-12.0 % Eosinophils (%) (Auto) 0.0 0.0-7.0 % Basophils (%) (Auto) 0.1 0.0-2.0 % Neutrophils # (Auto) 6.6 1.6-8.6 10 ^3/uL Lymphocytes # (Auto) 0.6 0.4-5.4 10 ^3/uL Monocytes # (Auto) 0.1 0-1.3 10 ^3/uL Eosinophils # (Auto) 0 0-0.8 10 ^3/uL Basophils # (Auto) 0 0-0.2 10 ^3/uL Nucleated Red Blood Cells 0.0 % Sodium Level 139 # 136-145 mmol/L Potassium Level 4.9 3.5-5.1 mmol/L Chloride Level 103 98-107 mmol/L Carbon Dioxide Level 28 20-31 mmol/L Anion Gap 8 5-15 Blood Urea Nitrogen 29 #H 9-23 mg/dL Creatinine 1.75 H 0.700-1.30 mg/dL Glomerular Filtration Rate Calc 37 >90 mL/min BUN/Creatinine Ratio 16.6 10.0-20.0 Serum Glucose 282 H 74-106 mg/dL Calcium Level 9.6 8.7-10.4 mg/dL Total Bilirubin 0.8 0.2-1.0 mg/dL Aspartate Amino Transferase (AST) 22 13-40 U/L Alanine Aminotransferase (ALT) 28 7-40 U/L Alkaline Phosphatase 133 H 46-116 U/L Total Protein 6.4 5.7-8.2 g/dL Albumin 3.8 3.2-4.8 g/dL Differential Total Cells Counted 100.0 100 Neutrophils % (Manual) 92 H 37.0-80.0 Band Neutrophils % (Manual) 2 Lymphocytes % (Manual) 5 L 10.0-50.0 Monocytes % (Manual) 1 0-12 Eosinophils % (Manual) 0 0-7 Basophils % (Manual) 0 0.0-2.0 Metamyelocytes % (manual) 0 Myelocytes % (Manual) 0 Promyelocytes % (Manual) 0 Blast Cells % (Manual) 0 Reactive Lymphocytes 0 Platelet Estimate Adequate Anisocytosis (manual) Slight Influenza Type A Antigen Negative Negative Influenza Type B Antigen Negative Negative SARS-CoV-2 Antigen (Rapid) Negative NEGATIVE Troponin I High Sensitivity 17 </=54 ng/L Test 03/09/24 20:55 03/09/24 20:53 Range/Units B-Type Natriuretic Peptide 252.99 0-100 pg/mL Blood Gas Specimen Type Venous Blood Gas Sample Site Vbg - n/a Blood Gas Patient Temperature 37.0 Arterial Blood Date Drawn [id number] Jevon Test N/a Venous Blood pH 7.381 7.320-7.430 Venous Blood pCO2 at Patient Temp 43.8 38.0-54.0 mmHg Venous Blood pO2 at Patient Temp < 36.5 23.0-48.0 mmHg Venous Blood HCO3 25.4 22.0-29.0 mmol/L Venous Blood Base Excess 0.0 -2.0-3.0 mmol/L Blood Gas Set Respiration Rate 14.0 Blood Gas Modality Mask - bipap FiO2 % 40.0 Blood Gas EPAP 5 Blood Gas IPAP 14 Assessment * Acute hypoxic respiratory failure - continue diuresing. On bronchodilators and steroids. * COPD exacerbation - pulmonology on board * Mild acute on chronic HFpEF - continue diuresing. Follow-up echo with normal EF. Small pericardial effusion. Monitor strict I&Os. * CHANELL on CKD * Pericardial effusion - small pericardial effusion echo. No indication of tamponade. Continue diuresing. Follow up outpatient echo in 3-4 weeks for monitoring. * HTN - losartan held due to worsening kidney function. BP marginal continue trending. * HLD statin * HX aortic stenosis s/p TAVR - stable on echo. Case Discussed with Dr Killian. Continue diuresing and monitoring kidney function. Strict I&Os. Echo showing low-normal EF with small pericardial effusion. No indication of cardiac tamponade. Blood pressure marginal we will hold BP meds for now. Hold Farhan/arbs for worsening kidney function. Critical care, time spent: 48 minutes This medical document was created using an electronic medical record system with voice recognition software and computerized dictation system. Although this document has been carefully reviewed, there might still be some phonetic and typographical errors. Occasional wrong-word or ``sound-alike substitutions may have occurred due to the inherent limitations of voice recognition software. These areas are purely typographical due to imperfections of the software programs and do not reflect any compromise in the patient's medical care. Please read the chart carefully and recognize, using context, where these substitutions have occurred. Plan discussed with: Patient Date of Service: Mar 11, 2024 Billing Provider: CAREY SWAN Cardiology Common Codes: [id number] INP/OBS CARE (High), [id number] CARE 30-74 MIN CAREY SWAN Mar 11, 2024 15:02
--- NOTE | 2024-03-11 21:42 | DVHPN2 ---
Progress Note - Dictate Date Seen: Mar 11, 2024 Medical Necessity Reason Pt with a Central, PICC or Fol: No Subjective Patient seen and examined at bedside. Remains on supplemental oxygen Overnight events reviewed. vital signs Vital Sign Date Time Temp Pulse Resp B/P (MAP) Pulse Ox O2 Delivery O2 Flow Rate FiO2 03/11/24 20:00 93 Nasal Cannula* 2 28 03/11/24 19:32 75 18 03/11/24 18:00 161/95 03/11/24 17:00 98.3 98.3 Total Intake and Output 03/10/24 03/10/24 03/11/24 15:00 23:00 07:00 Intake Total 900 ml 400 ml Output Total 1000 ml 500 ml Balance -100 ml -100 ml medications Current Medications Medications Dose Ordered Sig/Juan Route Start Time Stop Time Status Last Admin Dose Admin Methylprednisolone Sodium Succinate 40 mg Q8HR IV 03/10/24 06:00 03/11/24 21:00 40 MG Sodium Chloride 10 ml Q8HR IV 03/10/24 06:00 03/11/24 21:01 10 ML Docusate Sodium 100 mg BIDPRN PRN PO 03/10/24 00:30 Acetaminophen 650 mg Q6HP PRN PO 03/10/24 00:30 Bupropion HCl 150 mg DAILY PO 03/11/24 10:00 03/11/24 09:10 150 MG Citalopram Hydrobromide 20 mg DAILY PO 03/11/24 10:00 03/11/24 09:10 20 MG Tamsulosin HCl 0.4 mg QPM PO 03/10/24 18:00 03/11/24 18:00 0.4 MG Lamotrigine 25 mg DAILY PO 03/11/24 10:00 03/11/24 09:09 25 MG Trazodone HCl 100 mg HS PO 03/10/24 22:00 03/11/24 21:00 100 MG Aspirin 81 mg DAILY PO 03/11/24 10:00 03/11/24 09:10 81 MG Losartan Potassium 50 mg DAILY PO 03/11/24 10:00 Albuterol 2.5 mg Q6HR NEB 03/10/24 18:00 03/11/24 19:22 2.5 MG Ipratropium [place] 0.5 mg Q6HR NEB 03/10/24 18:00 03/11/24 19:23 0.5 MG Furosemide 40 mg BIDD IV 03/11/24 12:30 03/11/24 18:00 40 MG objective Gen.: Patient lying in bed in no apparent distress. On supplemental oxygen. Head: Normocephalic, atraumatic. Eyes: EOMI/PERRLA. Ears: Normal hearing. Normal anatomy. Neck/trachea: Trachea midline, supple. Nose: Normal external anatomy. Mouth: Moist mucous membranes. Chest: Decreased air entry bilaterally. No wheezing or rhonchi. Cardiovascular: Positive S1, positive S2. Regular rate and rhythm. Abdomen: Positive bowel sounds in all 4 quadrants. Soft, non-tender, non- distended. : Deferred. Rectal: Deferred. Skin: Warm, dry. Intact. Extremities: 2+ radial pulses bilaterally. No lower extremity edema. Neuro: Awake, alert, oriented x3. No gross motor or sensory deficits. Cranial nerves II through XII intact. Gait not assessed. laboratory and microbiology Laboratory Tests 03/11/24 04:36 Test 03/11/24 04:36 Range/Units Serum Glucose 282 H 74-106 mg/dL Assessment/Plan Impression: Acute hypoxic respiratory failure Acute exacerbation of COPD Acute exacerbation of CHF Atelectasis Morbid obesity with a BMI of 40 Events: Remains on supplemental oxygen, 2 LPM NC Taper O2 as tolerated Continue bronchodilators Continue steroids Continue antibiotics Incentive spirometry Labs and imaging reviewed. Rest of plan as noted below. Plan: Supplemental oxygen Keep O2 saturation above 92%. ABG reviewed. Compensated. BiPAP PRN. IPAP 14, EPAP 5. FiO2 Chest x-ray imaging report reviewed. No acute opacities. No pleural effusion pneumothorax. Continue bronchodilators. Steroids Antibiotics Monitor renal function Monitor electrolytes Supplement as necessary. Monitor ins and outs. DVT prophylaxis-SCDs Prognosis: Poor given multiple comorbidities. Rest of plan per hospitalist and other consultants. Thank you ÁNGEL Varela for allowing me to participate in this patient's care. Further recommendations will depend on patient's clinical course. Please do not hesitate to contact me if you have any questions or concerns. This medical document was created using an electronic medical record system with [employer] system. Although this document has been carefully reviewed, there may still be some phonetic and typographical errors. These areas are purely typographical due to imperfections of the software programs, and do not reflect any compromise in the patient's medical care. Plan discussed with: Patient, Other (RN) VIRGIL GASCA MD Mar 11, 2024 21:42
[2024-03-12] VITALS (15 sets, daily range): BP systolic 142–167; BP diastolic 63–78; PULSE 68–112; RESP 18–20; TEMP 97–98.8; O2SAT 92–99
--- NOTE | 2024-03-12 13:12 | DVHPN2 ---
Reviewed: Care Plan, H&P, Labs, Medications, Previous Orders, Radiology Changes from previous H/P or p: No Changes Eyes: No Pain, No Vision change, No Conjunctivae inflammation, No Eyelid inflammation, No Other, No Redness ENT: No Ear pain, No Ear discharge, No Nose pain, No Nose discharge, No Nose congestion, No Mouth pain, No Mouth swelling, No Throat pain, No Throat swelling, No Other Cardiovascular: No Chest Pain, No Palpitations, No Orthopnea, No Paroxysmal Noc. Dyspnea, No Edema, No Lt Headedness, No Other Respiratory: Cough; No Dry; Shortness of breath, SOB with excertion; No Wheezing, No Hemoptysis, No Pleuritic Pain, No Sputum; Other (SOB at rest.) Gastrointestinal: No Nausea, No Vomiting, No Abdominal Pain, No Diarrhea, No Constipation, No Melena, No Hematochezia, No Other Genitourinary: No Dysuria, No Frequency, No Incontinence, No Hematuria, No Retention, No Other Musculoskeletal: No other, No neck pain, No shoulder pain, No arm pain, No back pain, No hand pain, No leg pain, No foot pain Skin: No Rash, No Lesions, No Jaundice, No Bruising, No Other Objective Vitals Vital Signs Date Time Temp Pulse Resp B/P (MAP) Pulse Ox O2 Delivery O2 Flow Rate FiO2 03/12/24 12:54 93 Nasal Cannula* 2 28 03/12/24 12:54 75 18 03/12/24 10:56 162/71 03/12/24 09:00 97.6 97.6 Intake/Output Intake and Output 03/12/24 07:00 Intake Total 1158 ml Output Total 3900 ml Balance -2742 ml Intake Oral 1158 ml Output Urine Total 3900 ml # Bowel Movements 1 Medications Current Medications Medications Dose Ordered Sig/Juan Route Start Time Stop Time Status Last Admin Dose Admin Methylprednisolone Sodium Succinate 40 mg Q8HR IV 03/10/24 06:00 03/12/24 05:00 40 MG Sodium Chloride 10 ml Q8HR IV 03/10/24 06:00 03/12/24 10:41 10 ML Docusate Sodium 100 mg BIDPRN PRN PO 03/10/24 00:30 Acetaminophen 650 mg Q6HP PRN PO 03/10/24 00:30 Bupropion HCl 150 mg DAILY PO 03/11/24 10:00 03/12/24 10:41 150 MG Citalopram Hydrobromide 20 mg DAILY PO 03/11/24 10:00 03/12/24 10:43 20 MG Tamsulosin HCl 0.4 mg QPM PO 03/10/24 18:00 03/12/24 10:41 0.4 MG Lamotrigine 25 mg DAILY PO 03/11/24 10:00 03/12/24 10:44 25 MG Trazodone HCl 100 mg HS PO 03/10/24 22:00 03/11/24 21:00 100 MG Aspirin 81 mg DAILY PO 03/11/24 10:00 03/12/24 10:40 81 MG Losartan Potassium 50 mg DAILY PO 03/11/24 10:00 03/12/24 10:56 50 MG Albuterol 2.5 mg Q6HR NEB 03/10/24 18:00 03/12/24 12:54 2.5 MG Ipratropium [place] 0.5 mg Q6HR NEB 03/10/24 18:00 03/12/24 12:54 0.5 MG Furosemide 40 mg BIDD IV 03/11/24 12:30 03/12/24 05:04 40 MG Laboratory Results Laboratory Tests 03/11/24 04:36 Labs and/or images reviewed: Labs reviewed by me, Image(s) reviewed by me Assessment/Plan Assessment/Plan Acute hypoxic respiratory failure Acute exacerbation of COPD: Albuterol Atrovent Solu-Medrol: Consult by Neptali appreciated Acute exacerbation of CHF with 3+ bilateral pedal edema Lasix, BNP 252, echocardiogram, cardiology consult Atelectasis Hypertension Hypercholesterolemia Dementia Depression Chronic kidney disease Morbid obesity with BMI of 40 Vivi test negative COVID test negative Time spent 50 minutes Patient not stable for transfer to [facility] discussed with: Patient Date of Service: Mar 12, 2024 Billing Provider: EPIFANIO DUVAL MD Common Visit Codes: [id number] INP/OBS CARE(HIGH) EPIFANIO DUVAL MD Mar 12, 2024 13:12
[2024-03-12] MEDS: methylPREDNISolone SOD SUCC 40 MG/ML VL IV SCH (21:53)
--- NOTE | 2024-03-12 22:26 | DVHPN2 ---
Progress Note - Dictate Date Seen: Mar 12, 2024 Medical Necessity Reason Pt with a Central, PICC or Fol: No Subjective Patient seen and examined at bedside. Remains on supplemental oxygen Overnight events reviewed. vital signs Vital Sign Date Time Temp Pulse Resp B/P (MAP) Pulse Ox O2 Delivery O2 Flow Rate FiO2 03/12/24 22:00 97.5 79 19 148/69 (95) 97 97.5 03/12/24 19:16 Nasal Cannula* 2 28 Total Intake and Output 03/11/24 03/11/24 03/12/24 15:00 23:00 07:00 Intake Total 640 ml 518 ml Output Total 2100 ml 1800 ml Balance -1460 ml -1282 ml medications Current Medications Medications Dose Ordered Sig/Juan Route Start Time Stop Time Status Last Admin Dose Admin Sodium Chloride 10 ml Q8HR IV 03/10/24 06:00 03/12/24 21:44 10 ML Docusate Sodium 100 mg BIDPRN PRN PO 03/10/24 00:30 Acetaminophen 650 mg Q6HP PRN PO 03/10/24 00:30 Bupropion HCl 150 mg DAILY PO 03/11/24 10:00 03/12/24 10:41 150 MG Citalopram Hydrobromide 20 mg DAILY PO 03/11/24 10:00 03/12/24 10:43 20 MG Tamsulosin HCl 0.4 mg QPM PO 03/10/24 18:00 03/12/24 10:41 0.4 MG Lamotrigine 25 mg DAILY PO 03/11/24 10:00 03/12/24 10:44 25 MG Trazodone HCl 100 mg HS PO 03/10/24 22:00 03/12/24 21:45 100 MG Aspirin 81 mg DAILY PO 03/11/24 10:00 03/12/24 10:40 81 MG Losartan Potassium 50 mg DAILY PO 03/11/24 10:00 03/12/24 10:56 50 MG Albuterol 2.5 mg Q6HR NEB 03/10/24 18:00 03/12/24 19:15 2.5 MG Ipratropium [place] 0.5 mg Q6HR NEB 03/10/24 18:00 03/12/24 19:16 0.5 MG Furosemide 40 mg BIDD IV 03/11/24 12:30 03/12/24 15:40 40 MG Methylprednisolone Sodium Succinate 40 mg Q12HR IV 03/12/24 22:00 03/12/24 21:53 40 MG objective Gen.: Patient lying in bed in no apparent distress. On supplemental oxygen. Head: Normocephalic, atraumatic. Eyes: EOMI/PERRLA. Ears: Normal hearing. Normal anatomy. Neck/trachea: Trachea midline, supple. Nose: Normal external anatomy. Mouth: Moist mucous membranes. Chest: Decreased air entry bilaterally. No wheezing or rhonchi. Cardiovascular: Positive S1, positive S2. Regular rate and rhythm. Abdomen: Positive bowel sounds in all 4 quadrants. Soft, non-tender, non- distended. : Deferred. Rectal: Deferred. Skin: Warm, dry. Intact. Extremities: 2+ radial pulses bilaterally. No lower extremity edema. Neuro: Awake, alert, oriented x3. No gross motor or sensory deficits. Cranial nerves II through XII intact. Gait not assessed. laboratory and microbiology Laboratory Tests 03/11/24 04:36 Test 03/11/24 04:36 Range/Units Serum Glucose 282 H 74-106 mg/dL Assessment/Plan Impression: Acute hypoxic respiratory failure Acute exacerbation of COPD Acute exacerbation of CHF Atelectasis Morbid obesity with a BMI of 40 Events: Remains on supplemental oxygen, 2 LPM NC Taper O2 as tolerated Continue bronchodilators - patient refusing. Continue IV steroids Taper as tolerated - reduce frequency to q.12 hours Incentive spirometry Diurese as tolerated w/ Lasix BID Monitor renal function Labs and imaging reviewed. Rest of plan as noted below. Plan: Supplemental oxygen Keep O2 saturation above 92%. ABG reviewed. Compensated. Chest x-ray imaging report reviewed. No acute opacities. No pleural effusion pneumothorax. Continue bronchodilators. Steroids Antibiotics Monitor renal function Monitor electrolytes Supplement as necessary. Monitor ins and outs. DVT prophylaxis-SCDs Prognosis: Poor given multiple comorbidities. Rest of plan per hospitalist and other consultants. Thank you ÁNGEL Varela for allowing me to participate in this patient's care. Further recommendations will depend on patient's clinical course. Please do not hesitate to contact me if you have any questions or concerns. This medical document was created using an electronic medical record system with [employer] system. Although this document has been carefully reviewed, there may still be some phonetic and typographical errors. These areas are purely typographical due to imperfections of the software programs, and do not reflect any compromise in the patient's medical care. Plan discussed with: Patient, Other (CROIE Kaba) VIRGIL GASCA MD Mar 12, 2024 22:26
[2024-03-13] VITALS (11 sets, daily range): BP systolic 154–163; BP diastolic 81–96; PULSE 56–83; RESP 18–20; TEMP 97.4–98.5; O2SAT 92–98
[2024-03-13] MEDS ORDERED: ALBUAER3 IN (10:49)
[2024-03-13] MEDS ORDERED: METH4PAK PO (10:49)
[2024-03-13] MEDS ORDERED: IPRIH INH (10:49)
[2024-03-13] MEDS ORDERED: LEVO500T91 PO (10:50)
--- NOTE | 2024-03-13 10:51 | DVHPN2 ---
Reviewed: Care Plan, H&P, Labs, Medications, Previous Orders, Radiology Changes from previous H/P or p: No Changes Eyes: No Pain, No Vision change, No Conjunctivae inflammation, No Eyelid inflammation, No Other, No Redness ENT: No Ear pain, No Ear discharge, No Nose pain, No Nose discharge, No Nose congestion, No Mouth pain, No Mouth swelling, No Throat pain, No Throat swelling, No Other Cardiovascular: No Chest Pain, No Palpitations, No Orthopnea, No Paroxysmal Noc. Dyspnea, No Edema, No Lt Headedness, No Other Respiratory: Cough; No Dry; Shortness of breath, SOB with excertion; No Wheezing, No Hemoptysis, No Pleuritic Pain, No Sputum; Other (SOB at rest.) Gastrointestinal: No Nausea, No Vomiting, No Abdominal Pain, No Diarrhea, No Constipation, No Melena, No Hematochezia, No Other Genitourinary: No Dysuria, No Frequency, No Incontinence, No Hematuria, No Retention, No Other Musculoskeletal: No other, No neck pain, No shoulder pain, No arm pain, No back pain, No hand pain, No leg pain, No foot pain Skin: No Rash, No Lesions, No Jaundice, No Bruising, No Other Objective Vitals Vital Signs Date Time Temp Pulse Resp B/P (MAP) Pulse Ox O2 Delivery O2 Flow Rate FiO2 03/13/24 09:00 98.5 78 19 154/86 (108) 96 98.5 03/13/24 08:29 2.0 28 03/13/24 06:23 Nasal Cannula* Intake/Output Intake and Output 03/13/24 07:00 Intake Total 5180 ml Output Total 3800 ml Balance 1380 ml Intake Oral 5180 ml Output Urine Total 3800 ml # Bowel Movements 1 Medications Current Medications Medications Dose Ordered Sig/Juan Route Start Time Stop Time Status Last Admin Dose Admin Sodium Chloride 10 ml Q8HR IV 03/10/24 06:00 03/13/24 05:15 10 ML Docusate Sodium 100 mg BIDPRN PRN PO 03/10/24 00:30 Acetaminophen 650 mg Q6HP PRN PO 03/10/24 00:30 Bupropion HCl 150 mg DAILY PO 03/11/24 10:00 03/12/24 10:41 150 MG Citalopram Hydrobromide 20 mg DAILY PO 03/11/24 10:00 03/12/24 10:43 20 MG Tamsulosin HCl 0.4 mg QPM PO 03/10/24 18:00 03/12/24 10:41 0.4 MG Lamotrigine 25 mg DAILY PO 03/11/24 10:00 03/12/24 10:44 25 MG Trazodone HCl 100 mg HS PO 03/10/24 22:00 03/12/24 21:45 100 MG Aspirin 81 mg DAILY PO 03/11/24 10:00 03/12/24 10:40 81 MG Losartan Potassium 50 mg DAILY PO 03/11/24 10:00 03/12/24 10:56 50 MG Albuterol 2.5 mg Q6HR NEB 03/10/24 18:00 03/13/24 06:23 2.5 MG Ipratropium [place] 0.5 mg Q6HR NEB 03/10/24 18:00 03/13/24 06:22 0.5 MG Furosemide 40 mg BIDD IV 03/11/24 12:30 03/13/24 05:15 40 MG Methylprednisolone Sodium Succinate 40 mg Q12HR IV 03/12/24 22:00 03/12/24 21:53 40 MG Laboratory Results Laboratory Tests 03/11/24 04:36 Labs and/or images reviewed: Labs reviewed by me, Image(s) reviewed by me Assessment/Plan Assessment/Plan Acute hypoxic respiratory failure Acute exacerbation of COPD: Albuterol Atrovent Solu-Medrol: Consult by Neptali appreciated Acute exacerbation of CHF with 3+ bilateral pedal edema Lasix, BNP 252, echocardiogram normal ejection fraction, cardiology consult by Dr. Killian appreciated Atelectasis Hypertension Hypercholesterolemia Dementia Depression Chronic kidney disease Morbid obesity with BMI of 40 Vivi test negative COVID test negative Time spent 50 minutes Patient not stable for transfer to [facility] discussed with: Patient My Orders Orders - EPIFANIO DUVAL MD Procedure Category Date Status Time Imaging Transfer ORDERS 03/13/24 Transmitted Request 07:50 Date of Service: Mar 13, 2024 Billing Provider: EPIFANIO DUVAL MD Common Visit Codes: [id number] INP/OBS CARE(HIGH) EPIFANIO DUVAL MD Mar 13, 2024 10:51
--- NOTE | 2024-03-13 10:57 | DVHDS2 ---
Discharge Summary Date of Admission Mar 10, 2024 at 00:25 Date of Discharge: Mar 13, 2024 Admitting Diagnosis COPD exacerbation Wounds: None Labs/Diagnostic Data: Laboratory Results Test 03/11/24 04:36 03/10/24 06:37 03/09/24 23:13 03/09/24 21:54 White Blood Count 7.3 10^3/uL (4.4-10.8) Red Blood Count 4.18 10^6/uL (4.5-5.90) Hemoglobin 13.1 g/dL (13.5-17.5) Hematocrit 39.5 % (41.0-53.0) Mean Corpuscular Volume 94.7 fL (80.0-100.0) Mean Corpuscular Hemoglobin 31.4 pg (28.0-32.0) Mean Corpuscular Hemoglobin Concent 33.2 g/dL (32.0-36.0) Red Cell Distribution Width 15.5 % (11.8-14.3) Platelet Count 180 10^3/uL (140-450) Mean Platelet Volume 9.6 fL (6.9-10.8) Neutrophils (%) (Auto) 90.3 % (37.0-80.0) Lymphocytes (%) (Auto) 8.1 % (10.0-50.0) Monocytes (%) (Auto) 1.5 % (0.0-12.0) Eosinophils (%) (Auto) 0.0 % (0.0-7.0) Basophils (%) (Auto) 0.1 % (0.0-2.0) Neutrophils # (Auto) 6.6 10 ^3/uL (1.6-8.6) Lymphocytes # (Auto) 0.6 10 ^3/uL (0.4-5.4) Monocytes # (Auto) 0.1 10 ^3/uL (0-1.3) Eosinophils # (Auto) 0 10 ^3/uL (0-0.8) Basophils # (Auto) 0 10 ^3/uL (0-0.2) Nucleated Red Blood Cells 0.0 % Sodium Level 139 mmol/L (136-145) Potassium Level 4.9 mmol/L (3.5-5.1) Chloride Level 103 mmol/L (98-107) Carbon Dioxide Level 28 mmol/L (20-31) Anion Gap 8 (5-15) Blood Urea Nitrogen 29 mg/dL (9-23) Creatinine 1.75 mg/dL (0.700-1.30) Glomerular Filtration Rate Calc 37 mL/min (>90) BUN/Creatinine Ratio 16.6 (10.0-20.0) Serum Glucose 282 mg/dL (74-106) Calcium Level 9.6 mg/dL (8.7-10.4) Total Bilirubin 0.8 mg/dL (0.2-1.0) Aspartate Amino Transferase (AST) 22 U/L (13-40) Alanine Aminotransferase (ALT) 28 U/L (7-40) Alkaline Phosphatase 133 U/L (46-116) Total Protein 6.4 g/dL (5.7-8.2) Albumin 3.8 g/dL (3.2-4.8) Differential Total Cells Counted 100.0 (100) Neutrophils % (Manual) 92 (37.0-80.0) Band Neutrophils % (Manual) 2 Lymphocytes % (Manual) 5 (10.0-50.0) Monocytes % (Manual) 1 (0-12) Eosinophils % (Manual) 0 (0-7) Basophils % (Manual) 0 (0.0-2.0) Metamyelocytes % (manual) 0 Myelocytes % (Manual) 0 Promyelocytes % (Manual) 0 Blast Cells % (Manual) 0 Reactive Lymphocytes 0 Platelet Estimate Adequate Anisocytosis (manual) Slight Influenza Type A Antigen Negative (Negative) Influenza Type B Antigen Negative (Negative) SARS-CoV-2 Antigen (Rapid) Negative (NEGATIVE) Troponin I High Sensitivity 17 ng/L (</=54) Test 03/09/24 20:55 03/09/24 20:53 B-Type Natriuretic Peptide 252.99 pg/mL (0-100) Blood Gas Specimen Type Venous Blood Gas Sample Site Vbg - n/a Blood Gas Patient Temperature 37.0 Arterial Blood Date Drawn [id number] Jevon Test N/a Venous Blood pH 7.381 (7.320-7.430) Venous Blood pCO2 at Patient Temp 43.8 mmHg (38.0-54.0) Venous Blood pO2 at Patient Temp < 36.5 mmHg (23.0-48.0) Venous Blood HCO3 25.4 mmol/L (22.0-29.0) Venous Blood Base Excess 0.0 mmol/L (-2.0-3.0) Blood Gas Set Respiration Rate 14.0 Blood Gas Modality Mask - bipap FiO2 % 40.0 Blood Gas EPAP 5 Blood Gas IPAP 14 Other Laboratory Tests 03/11/24 04:36 Brief Hx & Hospital Course: 88-year-old male with a history of COPD CHF hypertension hypercholesterolemia dementia depression chronic kidney disease came in for shortness of breaths found to have acute COPD exacerbation treated with albuterol Atrovent Solu- Medrol consult by pulmonology Dr. Gunderson patient had 3+ bilateral pedal edema BNP [address] Killian echocardiogram normal ejection fraction. Vivi test negative COVID test negative patient symptomatically improved. Afebrile and being discharged home. He has home oxygen. Prescription for Levaquin albuterol Atrovent and prednisone transmitted to [facility] on [facility]. He was advised to follow up with his primary Dr at [facility] as soon as possible Consults/Reason for consult Cardiology Dr. Killian Pulmonology Dr. Gunderson Operations or Procedures None Condition at Discharge: Fair Final Diagnosis/Problems List Acute hypoxic respiratory failure Acute exacerbation of COPD: Albuterol Atrovent Solu-Medrol: Consult by Neptali appreciated Acute exacerbation of CHF with 3+ bilateral pedal edema Lasix, BNP 252, echocardiogram normal ejection fraction, cardiology consult by Dr. Killian appreciated Atelectasis Hypertension Hypercholesterolemia Dementia Depression Chronic kidney disease Morbid obesity with BMI of 40 Vivi test negative COVID test negative Discharge Disposition: Home Discharge Instruct/Medications Diet: Cardiac 2g Na,low cholest Activity: No Restrictions, As Tolerated Follow Up/Referral: Follow up with your Dr at [facility] Resume all previous home medication Medications: Levaquin Prednisone Albuterol Atrovent Transmitted to [facility] 35 (Time Taken for discharge summary 35 minutes) Discharge Statement: "Patient was advised to return to the ER or call 911 if any headaches, dizziness, shortness of breath, chest pain, abdominal pain, bleeding, fevers, or worsening of medical condition. Patient was counseled about treatment plan, medications, possible side effects, patientverbalized understanding. All questions were answered to the best of my ability. This discharge took greater then 30 minutes in planning, reviewing documentation, counseling the patient, and discussing with other team members." ASSESSMENT ASSESSMENT Hospital Course Improved Assessment Acute hypoxic respiratory failure Acute exacerbation of COPD: Albuterol Atrovent Solu-Medrol: Consult by Neptali appreciated Acute exacerbation of CHF with 3+ bilateral pedal edema Lasix, BNP 252, echocardiogram normal ejection fraction, cardiology consult by Dr. Killian appreciated Atelectasis Hypertension Hypercholesterolemia Dementia Depression Chronic kidney disease Morbid obesity with BMI of 40 Vivi test negative COVID test negative Date of Service: Mar 13, 2024 Billing Provider: EPIFANIO DUVAL MD Common Visit Codes: [id number] DISCH DAY >30min EPIFANIO DUVAL MD Mar 13, 2024 10:57
[2024-03-13 13:46] LABS: Base Excess 6.4 mmol/L (-2.0-3.0)
--- NOTE | 2024-03-13 20:56 | DVHPN2 ---
Progress Note - Dictate Date Seen: Mar 13, 2024 Medical Necessity Reason Pt with a Central, PICC or Fol: Yes The following are medically ne: Castle Catheter Reason for castle catheter: Strict I&O Subjective Patient seen and examined at bedside. Remains on supplemental oxygen Overnight events reviewed. vital signs Vital Sign Date Time Temp Pulse Resp B/P (MAP) Pulse Ox O2 Delivery O2 Flow Rate FiO2 03/13/24 18:15 92 Room Air 0.0 03/13/24 18:15 21 03/13/24 17:00 97.5 83 19 163/93 (116) 97.5 Total Intake and Output 03/12/24 03/12/24 03/13/24 15:00 23:00 07:00 Intake Total 720 ml 2560 ml 1900 ml Output Total 1700 ml 2100 ml Balance 720 ml 860 ml -200 ml objective Gen.: Patient lying in bed in no apparent distress. On supplemental oxygen. Head: Normocephalic, atraumatic. Eyes: EOMI/PERRLA. Ears: Normal hearing. Normal anatomy. Neck/trachea: Trachea midline, supple. Nose: Normal external anatomy. Mouth: Moist mucous membranes. Chest: Decreased air entry bilaterally. No wheezing or rhonchi. Cardiovascular: Positive S1, positive S2. Regular rate and rhythm. Abdomen: Positive bowel sounds in all 4 quadrants. Soft, non-tender, non- distended. : Deferred. Rectal: Deferred. Skin: Warm, dry. Intact. Extremities: 2+ radial pulses bilaterally. No lower extremity edema. Neuro: Awake, alert, oriented x3. No gross motor or sensory deficits. Cranial nerves II through XII intact. Gait not assessed. laboratory and microbiology Laboratory Tests 03/11/24 04:36 Test 03/11/24 04:36 Range/Units Serum Glucose 282 H 74-106 mg/dL Assessment/Plan Impression: Acute hypoxic respiratory failure Acute exacerbation of COPD Acute exacerbation of CHF Atelectasis Morbid obesity with a BMI of 40 Events: Remains on supplemental oxygen, 2 LPM NC Taper O2 as tolerated Assess for home O2 requirements. Awaiting ABG to see if patient qualifies. Continue bronchodilators - patient refusing. Continue IV steroids q.12 hours Taper as tolerated Incentive spirometry Patient is stable for discharge from the pulmonary standpoint. Labs and imaging reviewed. Rest of plan as noted below. Plan: Supplemental oxygen Keep O2 saturation above 92%. ABG reviewed. Compensated. Chest x-ray imaging report reviewed. No acute opacities. No pleural effusion pneumothorax. Continue bronchodilators. Steroids Antibiotics Monitor renal function Monitor electrolytes Supplement as necessary. Monitor ins and outs. DVT prophylaxis-SCDs Prognosis: Poor given multiple comorbidities. Rest of plan per hospitalist and other consultants. Thank you ÁNGEL Varela for allowing me to participate in this patient's care. Further recommendations will depend on patient's clinical course. Please do not hesitate to contact me if you have any questions or concerns. This medical document was created using an electronic medical record system with [employer] dictation system. Although this document has been carefully reviewed, there may still be some phonetic and typographical errors. These areas are purely typographical due to imperfections of the software programs, and do not reflect any compromise in the patient's medical care. Plan discussed with: Patient, Other (CORIE Clarke) VIRGIL GASCA MD Mar 13, 2024 20:56
== END 2024-03-13 18:31 | disposition home or self-care (01) | DRG 291 ==
LOC: EDBD 20:23 → ER 20:23 → TELE 03-10 00:25 → TELE-WESTW 03-10 04:00
PROVIDERS: ADMIT Nurse Practitioner Family; ATTEND Family Medicine
PROC: 5A09357 Assistance with Respiratory Ventilation, Less than 24 Consecutive Hours, Continuous Positive Airway Pressure (ICD-10-PCS; principal; 2024-03-09)
DX: I13.0 Hypertensive heart and chronic kidney disease with heart failure and stage 1 through stage 4 chronic kidney disease, or unspecified chronic kidney disease (principal); I50.23 Acute on chronic systolic (congestive) heart failure; J96.01 Acute respiratory failure with hypoxia; J44.1 Chronic obstructive pulmonary disease with (acute) exacerbation; J98.11 Atelectasis; N17.9 Acute kidney failure, unspecified; I31.39 Other pericardial effusion (noninflammatory); Z20.822 Contact with and (suspected) exposure to COVID-19; E66.01 Morbid (severe) obesity due to excess calories; E78.00 Pure hypercholesterolemia, unspecified; F32.A Depression, unspecified; N18.9 Chronic kidney disease, unspecified; F03.90 Unspecified dementia, unspecified severity, without behavioral disturbance, psychotic disturbance, mood disturbance, and anxiety; Z82.49 Family history of ischemic heart disease and other diseases of the circulatory system; Z95.2 Presence of prosthetic heart valve; Z79.899 Other long term (current) drug therapy; Z68.39 Body mass index [BMI] 39.0-39.9, adult
CPT/HCPCS: 36415; 36600; 71045; 80048; 80053; 82805; 83880; 84484; 85007; 85025; 85027; 87426; 87804; 93005; 93306; 94640; 94660; 96374; 99291; G0378